=== PATIENT | male | born 1945 | race Caucasian/White ===

== ENCOUNTER 2025-02-15 20:37 | Emergency (ER) | payer MEDICARE, OTHER, SELFPAY ==
--- NOTE | ~2025-02-15 | XR_ITS ---
CHEST RADIOGRAPH CLINICAL HISTORY: preop. HX OF RIGHT LUNG CANCER. . COMPARISON: None available TECHNIQUE: Single portable view of the chest. FINDINGS Severe bullous emphysematous change. Postoperative change within the right hemithorax volume loss and apical thickening. The remainder of the lungs are clear IMPRESSION: Severe bullous emphysematous change with postoperative volume loss and apical thickening of the right hemithorax. Reviewed, dictated and finalized at location A. IMPRESSION: Severe bullous emphysematous change with postoperative volume loss and apical t hickening of the right hemithorax.
--- NOTE | ~2025-02-15 | XR_ITS ---
XR hip RT 2V w AP pelvis Ordering provider: Kehinde Gallagher MD History: . 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 . Comparison: None FINDINGS: BONES: Fracture in the right hip intertrochanteric area. HIP JOINT SPACES: Moderate osteoarthritis bilaterally. SACROILIAC JOINT SPACES/LUMBAR SPINE: The sacroiliac joint spaces are normal. Mild degenerative ledbetter es of the visualized lower lumbar spine. PUBIC SYMPHYSIS: Pubic symphysitis. SOFT TISSUES: Normal. IMPRESSION: Right intertrochanteric area. Bilateral severe hip osteoarthritic changes of the Reviewed, dictated and finalized at location A.
[2025-02-15 20:37] VITALS: BP 117/79; PULSE 108; RESP 20; TEMP 36.6; O2SAT 92
--- NOTE | 2025-02-15 20:51 | ED_ITS ---
HPI - Fall General Chief Complaint: Extremity Injury, Lower Stated Complaint: R hip pain Time Seen by Provider: 02/15/25 20:51 Source: patient Mode of arrival: EMS Limitations: no limitations History of Present Illness HPI Narrative: Patient is a 79-year-old male with a right hip pain after falling in the past week in [place]. He drove all the way back up to home in this area and stopped in a fire station where they called an ambulance to bring him to the ER. MD complaint: fall Onset (ago): week(s) ( One) Fall from: standing Fall witnessed: no Place fall occurred: home Loss of consciousness: none Prolonged down time: no Symptoms prior to fall: none Context: tripped/slipped Location of injury: pelvis ( right hip) Severity: moderate Severity scale (1-10): 6 Quality: sharp Associated symptoms (after fall): denies Related Data Allergies Allergy/AdvReac Type Severity Reaction Status Date / Time doxycycline Allergy Intermediate Hives Verified 02/15/25 21:10 Review of Systems 2 Review of Systems: All systems reviewed & are unremarkable except as noted in HPI and below Constitutional: Constitutional: Reports no additional constitutional complaints Eyes: Eyes: Reports no additional eye complaints ENT: Reports system reviewed and no additional complaints, except as documented Cardiovascular: Cardiovascular: Reports no additional cardiovascular complaints Respiratory: Respiratory: Reports no additional respiratory complaints Gastrointestinal: Gastrointestinal: Reports no additional gastrointestinal complaints Genitourinary: Genitourinary: Reports no additional male genitourinary complaints Musculoskeletal: Musculoskeletal: Reports no additional musculoskeletal complaints Integumentary/Breasts: Skin/Breast: Reports system reviewed and no additional complaints, except as docu Neurologic: Reports system reviewed and no additional complaints, except as documented Psychiatric: Psychiatric: Reports no additional psychiatric complaints Endocrine: Endocrine: Reports no additional endocrine complaints Hematologic/Lymphatic: Hematologic/Lymphatic: Reports no additional hematologic/lymphatic complaints Allergic/Immunologic: Allergic/Immunologic: Reports no additional allergic/immunologic complaints Exam 2 Const: General: healthy appearing Nutritional Appearance: well nourished Orientation/consciousness: patient oriented x3 HENMT: Head: normal to inspection Ears: external ears normal F shawn/Nose/Sinus: Normal external nose present Eyes: Conjunctivae: conjunctivae normal Pupils: Equal, round and reactive pupils present EOM: EOMs intact bilaterally Neck: Neck: normal visual inspection Chest: Chest palpation & inspection: normal inspection of the chest Resp: Effort & Inspection: normal respiratory effort and not labored A uscultation: clear to auscultation bilaterally and no crackles Cardio: Rate: regular rate Rhythm: regular rhythm Heart sounds: no murmurs GI: Inspection: non-distended GI Palp: Yes Soft to palpation and No Tenderness to palpation present (GI) Auscultation: normal bowel sounds : General: Yes bladder normal to palpation Back/Spine/Pelvis: Back: no CVA tenderness Skin: General skin exam: normal color Rashes: no rashes Wounds: no wounds Neuro: General: patient oriented x3, moves all extremities, no meningeal signs, no focal motor deficits and CN's II-XI intact bilaterally Cranial nerves: Yes Nystagmus not present Speech: normal speech Gait exam (Neuro): gait abnormal Extrem: General: abnormal to inspection, no clubbing, cyanosis or edema, no pedal edema and no edema Other: right hip is tender and slightly malrotated and shortened with distal pulses present Psych: Mental Status: mental status grossly normal Affect: normal affect Attitude: cooperative Course Vital Signs Vital signs: Vital Signs Temperature 36.6 C 02/15/25 20:37 Pulse Rate 108 H 02/15/25 20:37 Respiratory Rate 20 02/15/25 20:37 Blood Pressure 117/79 02/15/25 20:37 Pulse Oximetry 92 02/15/25 20:37 Oxygen Delivery Room Air 02/15/25 20:37 Temperature 36.6 C 02/15/25 20:37 Pulse Rate 108 H 02/15/25 20:37 Respiratory Rate 20 02/15/25 20:37 Blood Pressure 117/79 02/15/25 20:37 Pulse Oximetry 92 02/15/25 20:37 Oxygen Delivery Room Air 02/15/25 20:37 MDM - Fall MDM Narrative Medical decision making narrative: patient is a 79-year-old male with a fall in the past week and [place] We will get an x-ray of the right hip and pelvis. Lab Data Attestation: I reviewed the patient's lab results. 02/15/25 22:19 02/15/25 22:19 Labs: Lab Results 02/15/25 02/15/25 Range/Units 21:50 22:19 WBC 12.9 H (4.8-10.8) K/mm3 RBC 4.52 L (4.70-6.10) M/mm3 Hgb 15.5 H (12.4-15.3) g/dL Hct 47.0 H (37.0-46.0) % MCV 104.0 H (78.0-102.0) fL MCH 34.3 H (27.0-31.0) pg MCHC 33.0 (32-36) g/dL RDW 15.0 H (11.6-14.4) % Plt Count 230 (150-420) K/mm3 MPV 10.7 (8.7-11.0) fl Immature Gran % (Auto) 0.5 H (0.0-0.0) % Neut % (Auto) 88.7 H (50.0-70.0) % Lymph % (Auto) 3.4 L (18.0-42.0) % [place] % (Auto) 7.3 (2.0-11.0) % Eos % (Auto) 0.0 L (1.0-6.0) % Baso % (Auto) 0.1 (0.0-1.0) % Lymph # (Auto) 0.44 L (1.10-4.50) K/mm3 [place] # (Auto) 0.94 H (0.10-0.90) K/mm3 Eos # (Auto) 0.00 L (0.02-0.50) K/mm3 Baso # (Auto) 0.01 (0.00-0.10) K/mm3 Abs Immat Gran (auto) 0.07 H (0.00-0.00) K/mm3 Absolute Neuts (auto) 11.42 H (1.70-7.20) K/mm3 Absolute Nucleated RBC 0.00 (0.00-0.00) K/mm3 Nucleated RBC % 0.0 (0-0.0) % PT 11.3 (9.50-12.1) Seconds INR 1.0 APTT 27.6 (23.9-30.70) Sec Sodium 134 L (137-145) mmol/L Potassium 5.0 (3.4-5.0) mmol/L Chloride 103 (98-107) mmol/L Carbon Dioxide 22 (22-30) mmol/L Anion Gap 9 (4-12) mmol/L BUN 21 H (9-20) mg/dL Creatinine 1.50 H (0.7-1.3) mg/dL Estim Creat Clear Calc 34 ml/min Estimated GFR 45 L (59 - ) Glucose 140 H (65-110) mg/dL Calculated Osmolality 283 L (285-295) mOsm/kg Calcium 9.4 (8.4-10.2) mg/dL Total Bilirubin 1.4 H (0.2-1.3) mg/dL AST 36 (17-59) U/L ALT 24 (6-50) U/L Alkaline Phosphatase 133 H (38-126) U/L Total Protein 7.9 (6.3-8.2) g/dL Albumin 4.3 (3.5-5.1) g/dL Urine Color Yellow (Yellow) Urine Appearance Clear (Clear) Urine pH 5.5 (5.0-8.0) Ur Specific [place] 1.025 H (1.010-1.020) Urine Protein 1+ H (Negative) Urine Glucose (UA) Negative (Negative) Urine Ketones Trace H (Negative) Ur Blood (Man) Negative (Negative) Urine Nitrate Negative (Negative) Urine Bilirubin 1+ H (Negative) Urine Urobilinogen 0.2 (0.2-1.0) mg/dL Leukocyte Esterase Rfl Negative (Negative) LUCIAN/UL Urine RBC 0-2 (0-2) /hpf Urine WBC 0-3 (0-3) /hpf Ur Squamous Epith Cells Rare (Few) /hpf Calcium Oxalate Crystal Present H (None) /hpf Urine Bacteria Trace (None) /hpf Imaging Data Attestation: I personally reviewed and interpreted this imaging study as follows: Radiologist's impression: chest x-ray shows IMPRESSION: Severe bullous emphysematous change with postoperative volume loss and apical thickening of the right hemithorax. right hip x-ray and pelvis show a right hip intertrochanteric fracture ECG Data EKG #1: Attestation: I personally reviewed and interpreted this ECG as follows: ECG completion date: 02/15/25 ECG completion time: 23:03 EKG Interpretation: tachycardia, no ectopy, non-specific ST changes, widened QRS, LBBB, normal QT and left axis Discharge Plan Discharge Clinical Impression: Fracture of hip Qualifiers: Encounter type: initial encounter Fracture type: closed Laterality: right Q ualified Code(s): S72.001A - Fracture of unspecified part of neck of right femur, initial encounter for closed fracture Patient Disposition: Acute Care Hospital Condition: Stable Patient Language: Nepali Follow-up/Referrals: Jenn Saini MD [Physician] - Time of Disposition: 23:01
[2025-02-15] MEDS: MORPHINE SULFATE (*CRX) 2 MG/ML INJ IM (21:39)
--- OUTSIDE RECORDS SUMMARY | 2025-02-15 21:51 | XMS_ITS | Clinical Summary ---
Author Organization [facility] Address [address] [address] Phone Care Team Providers Care Supervising Chef Name Role Phone Silvano Wood MD Primary Care Provider [phone] Allergies Active Allergy Reactions Criticality Noted Date Comments Doxycycline Hives,Rash Medium 06/04/2023 Medications nitroglycerin (NITROSTAT) 0.3 MG SL tablet Active sacubitril-valsa rtan (Entresto) 49-51 MG per tablet Take 1 tablet twice a day by oral route for 90 days. 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 09/23/2020 Overview (01/10/2024): gastroenterology/ [id number] Chronic obstructive pulmonary disease 07/07/2020 Overview (01/13/2024): eliseo Encounters Date Type Department Care Team Description 01/09/2025 Telephone [facility] [address] [place] [address] Livia Ardon MA from Last 3 Months Immunizations Immunization Administration Dates Next Due Influenza TIV (IM) 08/24/2024,07/19/2023 Moderna Sars-cov-2 Vaccination 08/31/2022,2020,12/15/2020,11/14/2020 Pneumococcal Conjugate 02/17/2024(Deferred: Elizabeth ent decision) Pneumococcal Conjugate 13-Valent 02/17/2024(Defe rred: Patient decision) Family History Medical History Relation Comments Heart disease Father Relation Status Comments Father Social History Tobacco Use Types Packs/Day Years Used Date Smoking Tobacco: Former Cigarettes Passive Smoke Exposure: Past Smokeless Tobacco: Never Tobacco Cessation:Counseling Given: Yes Alcohol Use Standard Drinks/Week Comments Never 0 (1 standard drink = 0.6 oz pur e alcohol) Sex and Gender Information Value Date Recorded Sex Assigned at Not on file Legal Sex Male 10:05 AM MDT Gender Identity Not on file Sexual Orientation Not on file Last Filed Vital Signs Vital Sign Reading Time Taken Comments Blood Pressure 118/60 09/14/2024 2:34 PM EST Pulse 64 09/14/2024 2:34 PM EST Temperature - - Respiratory Rate - - Oxygen Saturation 94% 09/14/2024 2:34 PM EST Inhaled Oxygen Concentration - - Weight 71.2 kg (157 lb) 09/14/2024 2:34 PM EST Height 182.9 cm (6') 09/14/2024 2:34 PM EST Body Mass Index 21.29 09/14/2024 2:34 PM EST Plan of Treatment Health Maintenance Due Date Last Done Comments Pneumococcal PPSV23/PCV13 65 + Years / High and Highest Risk (1 of 5 - PCV) 1964 COVID-19 Vaccine ( - 2023-2 5 season) 2024 08/31/2022, 08/27/2021, 12/15/2020, Additional history exists Influenza Vaccine Completed 08/24/2024, 07/19/2023 Insurance PM INTERFACED INSURANCE PM INTERFACED INSURANCE PM INTERFACED INSURANCE Care Teams Supervising Chef Relationship Specialty Start Date End Date Silvano Wood MD [address] [place] [id number] PCP - General Family Medicine 02/17/24
--- OUTSIDE RECORDS SUMMARY | 2025-02-15 21:51 | XMS_ITS | Continuity of Care Document ---
Author Organization [facility] Address [address] [place] [address] [address] [place] [address] Phone Care Team Providers Care Housing Relocation Name Role Phone Davide Schwab MD Unavailable Unavailable Procedures Procedure Date HOSPITAL ECHO Advance Directives Directive Yes / No Effective Date File Name No Information Encounters Encounter Description Practice Location Reason(s) For Visit Diagnoses Date Provider Providers Copied on Encounter [facility], [address] [place] [address], [id number], tel:[phone] Devorah FONTANEZ No Information 8 Zaheer Augustine. [address] [place] [address], [id number] , [place]. tel:[phone] [facility], [address] [place] [address], [id number], [place] tel:[phone] [address] [facility] IP No Information 8 Rogelio Trammell. [address] [place] [address], [facility] [address] [place], [place], [id number] , [place]. tel:[phone] Referring Provider: Susan Avila, [address] [place] [address] [address], [address]. tel:[phone] Family History Family Member Type Diagnosis Age At Onset No Information Payers Payer name Insurance type Covered constitution party ID Authoriza tion(s) No Information Social History Type Description Quantity Date Captured Comments Sex Male Smoking Status No Information Chief Complaint And Reason For Visit No Information Reason For Referral Reason For Referral No Information History Of Present Illness Encounter Date Complaint History Of Prese nt Illness No Information Functional Status Date Functional Assessmen t No Information Instructions Date Instruction Additional Infor mation No Information Assessments Type Assessment Date No Information Patient Care Teams Name Effective Dates (start - stop) Status Members No Information
--- OUTSIDE RECORDS SUMMARY | 2025-02-15 21:51 | XMS_ITS | Data Portability ---
Author Organization [place] - [facility], [facility] Address [address] [facility] [place] [place] [address] Assessment Encounter Date Assessment Date Assessment LastModified by Organization Details LastModified Time 02/25/2021 02/25/2021 Patient presents with his left hand swollen, red streaking to his left antecubital area and a small open area with serous sanguineus drainage. His right hand has a 3cm X 2 cm bruised area and swelling noted to the thumb. The patient reports he awoke like this. Noticed mild itching on the right hand and awoke to see the swelling and redness. He denies fever. Will culture the left thumb, start patient on Doxycycline, IM shot of Rocephin and instructed to use Muporicin three times daily to both areas right and left. Patient was advised if he begins running a fever, redness or swelling becomes worse after starting the antibiotic to see medical attention. Pictures were taken and placed on chart with patients consent for future comparison. Patient verbalized understanding and is agreeable. [email or web address] Not available 02/25/2021 09:24:45 Plan of Treatment Reminders Order Date Submit Date Provider Last Modified By Organization Details Last Modified Time Details Appointments None recorded. Lab culture, wound - left hand/thumb 2020 021 ANDIE Not available 07:58:[address] referral - Please call patient to schedule appointment . Thank you. 2019 020 [email or web address] [facility], [address], [place], [address], 0 15:19:41 cardiologis t referral 2018 019 [facility], [address], [place], [address], 9 07:23:22 Procedures None recorded. Surgeries None recorded. Imaging LDCT, chest, for lung cancer screening - please call pt with appt time and date 2019 020 [facility], [address], [place], [address], 0 17:26:10 US, echocardiog belén, transthorac ic, complete, w/ color flow 2018 019 [email or web address] 4 [facility], [address], [place], [address], 9 10:24:59 Medication Orders mupirocin 2 % topical ointment 2020 021 [facility], [address], [place], [address], 1 09:20:43 ceftriaxone 1 gram solution for injection 2020 021 india spears Not available 1 11:15:18 doxycycline hyclate 100 mg tablet 2020 021 [facility], [address], [place], [address], 1 09:20:43 Medrol (Juan) 4 mg tablets in a dose pack 2019 020 [email or web address] [id number], [address], [place], [address], 0 13:42:06 mupirocin 2 % topical ointment 2019 020 [email or web address] [facility], [address], [place], [address], 0 10:58:23 Bactrim DS 800 mg-160 mg tablet 2019 020 [email or web address] [facility], [address], [place], [address], 0 13:42:27 Patient TargetsNo targets recorded. Patient Instructions Encounter Date Encounter Id Patient Instructions Last Modified By Organization Details Last Modified Time 08/21/2019 [id number] Thank you for choosing My [facility]. Return to the clinic or nearest emergency department for new/worsening symptoms immediately. Return for persistent symptoms. If any referral were made during your appointment today and you have not heard back about testing or referrals within 7-10 days then call our office number [phone]. REturn if symptoms persist for longer than 7-10 days. Not available 08/21/2019 15:21:38 11/14/2019 [id number] Thank you for choosing [facility]. Return to the clinic or nearest emergency department for new/worsening symptoms immediately. Return for persistent symptoms. If any referral were made during your appointment today and you have not heard back about testing or referrals within 7-10 days then call our office number [phone]. REturn if symptoms persist for longer than 7-10 days. Take the antibiotic as directed. Take the medrol dose juan as directed with food. Don't take the medrol dose juan while taking other NSAIds such as but not limited to ibuprofen, motrin, advil, aleve, naproxen, meloxicam, celebrex, or any other NSAID. Stop the medrol dose juan and get seen immediately for black tarry stools, abdominal pain, nausea, blood in the stools, vomiting, mental status changes or changes in behavior new/worsening symptoms. USe the antibiotic ointment. Not available 11/14/2019 12:10:36 05/09/2020 [id number] complete PFT w/ post bronchodilator spirometry* ANDIE Not available 07/07/2020 11:06:22 skin lesions: ca re instructions [email or web address] Not available 05/09/2020 19:14:36 rtc 6 month ex smoker ldct lung pft derm refer cont meds [place] Not available 05/09/2020 19:15:20 obatterton Not available 05/09 19:14:44 02/25/2021 [id number] cellulitis: care instructions [email or web address] Not available 02/25/2021 09:20:32 Thank you for choosing My [facility] for your health care. Take antibiotics as directed Wash with soap and water two times a day Do not use peroxide to the areas If areas continue to spread after beginning the antibiotics seek re evaluation or if fever begins F/U with PCP if syptoms worsen or persist. 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 Thank you. Referring Physician: Dexter Ricardo [facility], Encounter Date: 05/09/2020 Results Created Date Observation Date Name Description Value Unit Range Abnormal Flag Note LastModifiedBy Organization Detail LastModifiedTime 02/26/20 21 02/25/2021 gram stain age 75 years Lab Perfo rmed By: LUBA E_CGH , , , , Not Available Diane Cook DIRECTOR OF BUSINESS SERVICES [address] [place], [address], 02/26/2021 03:33:01 02/26/20 21 02/25/2021 cultu re, wound culture wound Staphy lococc us epider midis _CULT URE_W OUND_ Not Available Diane Cook DIRECT[employer] OF BUSINESS SERVICES [address] [place] [place], [address], 03/01/2021 07:58:01 02/26/20 21 02/25/2021 cultu re, wound wound site: HAND LEFT COMME NT __ This organ ism is usual ly a conta minat e but may be consi dered a Patho gen if clini eliezer sympt oms accom pany the prese nce of this organ ism. A sensi tivit y repor t is inclu ded for your conve nienc e shoul d you consi lynn this is a Patho gen. If not consi dered a Patho gen pleas e disre regis the sensi tivit y repor t. Not Available Diane Cook DIRECT[employer] OF [employer] SERVICES [address], [place], [address], 03/01/2021 07:58:01 02/26/20 21 02/25/2021 cultu re, wound sensitivity ? YES Not Available Jaswant Cook DIRECTOR OF BUSINESS SERVICES [address], [place], [address], 03/01/2021 07:58:01 02/26/20 21 02/25/2021 cultu re, wound notify ic.? YES Not Available Jaswant Cook [employer] SERVICES [address], [place], [address], 03/01/2021 07:58:01 02/26/20 21 02/25/2021 cultu re, wound notify pharm? YES Not Available Jaswant Cook DIRECTOR OF BUSINESS SERVICES [address], [place], [address], 03/01/2021 07:58:01 02/26/20 21 02/25/2021 cultu re, wound age 75 years Lab Perfo rmed By: LUBA E_CGH , [address], [place], [place], Not Available Diane Cook DIRECTOR OF BUSINESS SERVICES [address], [place], [address], 03/01/2021 07:58:01 02/26/20 21 02/25/2021 cultu re, wound cefoxitin screen Neg unknown Not Available Jaswant Cook DIRECT[employer] OF BUSINESS SERVICES [address], [place], [address], 03/01/2021 07:58:01 02/26/20 21 02/25/2021 cultu re, wound oxacillin della <=0.25 ug/mL susceptib le Not Available Diane Cook NP [address], [place], [address], 03/01/2021 07:58:01 02/26/20 21 02/25/2021 cultu re, wound gentamicin <=0.5 ug/mL susceptib le Not Available Diane Cook DIRECT[employer] SERVICES [address] [place], [address], 03/01/2021 07:58:01 02/26/20 21 02/25/2021 cultu re, wound levofloxacin <=0.12 ug/mL susceptib le Not Available Diane Cook DIRECT[employer] OF [employer] SERVICES [address], [place], [address], 03/01/2021 07:58:01 02/26/20 21 02/25/2021 cultu re, wound erythromycin <=0.25 ug/mL susceptib le Not Available Diane Cook DIRECT[employer] OF BUSINESS SERVICES [address], [place], [address], 03/01/2021 07:58:01 02/26/20 21 02/25/2021 cultu re, wound clindamycin =0.25 ug/mL susceptib le Not Available Diane Cook DIRECTOR OF BUSINESS SERVICES [address], [place], [address], 03/01/2021 07:58:01 02/26/20 21 02/25/2021 cultu re, wound daptomycin =0.25 ug/mL susceptib le Not Available Diane Cook DIRECTOR OF BUSINESS SERVICES [address], [place], [address], 03/01/2021 07:58:01 02/26/20 21 02/25/2021 cultu re, wound vancomycin =1 ug/mL susceptib le Not Available Diane Cook DIRECT[employer] OF BUSINESS SERVICES [address], [place], [address], 03/01/2021 07:58:01 02/26/20 21 02/25/2021 cultu re, wound doxycycline <=0.5 ug/mL susceptib le Not Available Diane Cook DIRECTOR OF BUSINESS SERVICES [address], [place], [address], 03/01/2021 07:58:01 02/26/20 21 02/25/2021 cultu re, wound tetracycline <=1 ug/mL susceptib le Not Available Diane Cook DIRECTOR OF BUSINESS SERVICES [address] [place], [address], 03/01/2021 07:58:01 02/26/20 21 02/25/2021 cultu re, wound rifampicin <=0.5 ug/mL susceptib le Not Available Diane Cook DIRECTOR OF BUSINESS SERVICES [address] [place] [facility] [place], [address], 03/01/2021 07:58:01 02/26/20 21 02/25/2021 cultu re, wound trimethoprim /sulfamethox a <=10 ug/mL susceptib le Lab Perfo rmed By: LUBA E_NERI , [address], [place], [place], Not Available Diane Cook DIRECTOR OF BUSINESS SERVICES [address] [place] [facility] [place], [address], 03/01/2021 07:58:01 05/24/20 20 05/24/2020 LDCT, chest , for lung don garcias Docs4[facility] o[facility] Report : Radiol ogy ([facility]) Radiol ogy Consul tation Report Exam: CT LUNG SCREEN ING Pt Name: BEHZAD GREENE : 1944 Sex: M Exam Date: 2019 Exam Time: 17:19: 07 69 Access ion: [id number] Pt Class: O Pt Locati on: [facility] Reason for Exam: Ordere d by: DEXTER BOOKER CT LUNG SCREEN ING Histor y: 30+ pack year smokin g histor y. Compar abbey: None availa ble. Techni que: Low dose chest CT was perfor med withou t contra st enhanc ement. Axial images were obtain ed from the thorac ic outlet to the upper abdome n. Jeffery l reform ats were perfor med. Dose reduct ion/it erativ e recons tructi on techni que was utiliz ed. Findin gs: Heart and Medias tinal Vessel s:Norm al heart size. Normal calibe r medias tinal vascul ar struct ures. Lymph Nodes: No medias tinal or hilar adenop athy. Esopha logan: Normal Calibe r. Large Airway s: Widely Patent . Lungs Genera l: Lungs have severe emphys cyndi most promin ent in upper lungs. Coarse linear opacit ies consis tent with scarri ng are seen in upper lungs. Lobar Evalua tion: RUL: No suspic ious nodule , RML: No suspic ious nodule , RLL: No suspic ious nodule , PJ: No suspic ious nodule , LLL: No suspic ious nodule , Pleura l Space: No pleura l mass or effusi on. Bones: Intact . Additi onal Findin gs: None. IMPRES SEDA: 1. Negati ve screen ing chest CT for suspic ious lung nodule . Recomm end routin e LDCT screen ing in one year. 2. There is signif icant centri lobula r emphys cyndi partic ularly in upper lungs where there is also scarri ng. Lung Rads Catego ry 1 Electr onical ly Signed by: Missael Borrero ed on: 020 5:[address] [facility], [place], [address], 05/26/2020 08:38:25 07/07/20 20 06/24/2020 compl ete PFT w/ post [facility] hodil ator luda metry * No observ ation record ed. [facility] [address], [place], [address], 07/10/2020 16:31:05 Result Notes None recorded. Problems Name Problem SNOMED Code Status Onset Date Resolution Date Notes Provider Name and Address Organization Details Recorded Time Nonischem ic congestiv e cardiomyo jean-pierre 133074258567 Active 2019 rink/ [facility] cardiolog y Dexter Ricardo MD [address], [place], [address], [facility] 0 10:13:04 Left bundle branch block 96767384 Active 2019 rink/[facility] cardiolog y Dexter Ricardo MD [address], [place], [address], [facility] 0 10:14:02 Pulmonary emphysema 25236446 Active 2019 Dexter Ricardo MD [address], [place], [address], [facility] 0 20:52:38 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 Procedures Surgical History Date Name Laterality Status Provider Name and Address Organization Details Recorded Time 8 Colonoscopy completed [facility] 08/21/2019 15:21:01 Imaging Results Imaging Date Name Status LastModified by Organization Details LastModified Time 05/24/2020 LDCT, chest, for lung cancer screening completed [address], [place], [address], 05/26/2020 08:38:25 06/24/2020 complete PFT w/ post bronchodilator spirometry* completed [facility] [address], [place], [address], 07/10/2020 16:31:05 Procedure Notes None recorded. Medical Equipment None Reported. Allergies Allergen ID Allergen Name Allergen Category Reaction Reaction Severity Criticality Documentation Date Start Date Code Code System Note Provider Name and Address Organization Details Recorded Time 90129 doxycycli ne Not available hives Not available Not available 02/27/2021 3640 RxNorm Cira Arita meenu, [facility] 1 09:01:40 Medications Name Sig Start Date Stop Date Status Note LastModified by Organization Details LastModified Time carvedilo l 12.5 mg tablet 05/09 completed Not Available Not Available Not Available ipratropi um 0.5 mg-albute rol 3 mg (2.5 mg base)/3 mL nebulizat ion soln 08/21 completed Not Available Not Available Not Available nitroglyc jayshree 0.3 mg sublingua l tablet active Not Available Not Available Not Available albuterol sulfate 1.25 mg/3 mL solution for nebulizat ion 08/21 completed Not Available Not Available Not Available Medrol (Juan) 4 mg tablets in a dose pack Take 1 dose pk by oral route. 05/07 completed Not Available Not Available Not Available sulfameth oxazole 800 mg-trimet hoprim 160 mg tablet Take 1 tablet every 12 hours by oral route for 10 days. 05/07 completed Not Available Not Available Not Available spironola ctone 25 mg tablet Take 1 tablet every day by oral route for 90 days. active Not Available Not Available No t Available carvedilo l 3.125 mg tablet 2 pills twice daily active Not Available Not Available No t Available ceftriaxo ne 1 gram solution for injection Take 1 g by injectio n route. 2020 active Ceftriax one 1 gram IM Now one time only Not Available Not Available Not Available benzonata te 100 mg capsule 08/21 completed Not Available Not Available Not Available cephalexi n 500 mg capsule Take 1 capsule every 8 hours by oral route for 7 days. 2020 active has d/c doxycyli ne to to allergic reaction Not Available Not Available Not Available Advair Diskus 250 mcg-50 mcg/dose powder for inhalatio n Inhale 1 puff twice a day by inhalati on route for 90 days. 02/25 completed Not Available Not Available Not Available Baby Aspirin 81 mg chewable tablet Chew 1 tablet every day by oral route. active Not Available Not Available No t Available mupirocin 2 % topical ointment APPLY A SMALL AMOUNT TO THE AFFECTED AREA BY TOPICAL ROUTE 3 TIMES PER DAY 2020 active Not Available Not Available Not Avai lable lisinopri l 2.5 mg tablet 11/14 completed Not Available Not Available Not Available doxycycli ne hyclate 100 mg tablet Take 1 tablet twice a day by oral route for 7 days. 2020 active Not Available Not Available Not Avai lable levofloxa keely 250 mg/10 mL oral solution 08/21 completed Not Available Not Available Not Available spironola ctone 1 pill daily 05/07 completed Not Available Not Available Not Available Dulera 100 mcg-5 mcg/actua tion HFA aerosol inhaler 08/21 completed Not Available Not Available Not Available Entresto 49 mg-51 mg tablet Take 1 tablet twice a day by oral route for 90 days. active Not Available Not Available No t Available Entresto 24 mg-26 mg tablet Take 1 tablet twice a day by oral route for 90 days. 05/09 completed Not Available Not Available Not Available Entresto 1 pill twice daily 05/07 completed Not Available Not Available Not Available Vitals Date Recorded Body height Body mass index (BMI) Body weight Oxygen saturation Oxygen saturation in Arterial blood by Pulse oximetry Respiratory rate Heart rate Body temperature Systolic blood pressure Diastolic blood pressure Provider Name and Address Organization Details Last Updated DateTime 1 185.42 cm 24.6 kg/m2 78321.6 2 g 96 % 96 % 20 /min 76 /min 97.4 [degF] 140 mm[Hg] 72 mm[Hg] Raina Redd [facility] 1 09:08:04 Date Recorded Body weight Body mass index (BMI) Body height Body temperature Oxygen saturation Oxygen saturation in Arterial blood by Pulse oximetry Respiratory rate Heart rate Systolic blood pressure Diastolic blood pressure Provider Name and Address Organization Details Last Updated DateTime 9 77054.3 6 g 22.1 kg/m2 185.42 cm 96.8 [degF] 96 % 96 % 16 /min 86 /min 128 mm[Hg] 76 mm[Hg] Juliet Orlando [facility] 9 15:23:15 Date Recorded Body height Provider Name an d Address Organization Details Last Updated DateTime 09/17/2019 185.42 cm Juliet Orlando [facility] 09/17/2019 08:28:47 Date Recorded Body height Body mass index (BMI) Body weight Body temperature Oxygen saturation Oxygen saturation in Arterial blood by Pulse oximetry Heart rate Respiratory rate Systolic blood pressure Diastolic blood pressure Provider Name and Address Organization Details Last Updated DateTime 0 185.42 cm 23.1 kg/m2 95411.3 8 g 99.6 [degF] 96 % 96 % 71 /min 18 /min 122 mm[Hg] 74 mm[Hg] Juliet Orlando [facility] 0 11:59:56 Date Recorded Body height Body mass index (BMI) Body weight Oxygen saturation Oxygen saturation in Arterial blood by Pulse oximetry Heart rate Body temperature Systolic blood pressure Diastolic blood pressure Provider Name and Address Organization Details Last Updated DateTime 0 185.42 cm 23.4 kg/m2 06972.6 5 g 93 % 93 % 91 /min 97.2 [degF] 130 mm[Hg] 62 mm[Hg] Susan Rueda [facility] 0 10:57:08 Social History Question Answer Notes LastModified by Organizat ion Details LastModified Time Tobacco Smoking Status Former Smoker Pt quit [facility]2019 [facility] 08/21/2019 15:20:32 Are You Currently Employed? No [email or web address] Information not available 11/14/2019 Do You Or Have You Ever Used E-cigarettes Or Vape? Never Used Electronic Cigarettes [email or web address] Information not available 08/21/2019 Hard Of Hearing Or Deaf In One Or Both Ears? No [email or web address] Information not available 11/14/2019 Legally Blind In One Or Both Eyes? No [email or web address] Information not available 11/14/2019 Live Alone Or With Others? With Others [email or web address] Information not available 11/14/2019 Need Dog Beautician Service? No [email or web address] Information not available 11/14/2019 What Was The Date Of Your Most Recent Tobacco Screening? 05/09/2020 Information not available 05/09/2020 Do You Or Have You Ever Used Smokeless Tobacco? Never Used Smokeless Tobacco [email or web address] Information not available 08/21/2019 How Many Years Have You Smoked Tobacco? 30 Information not available 05/09/2020 Sex: Unknown Functional Status Question Answer Note LastModified by Organization D etails LastModified Time Are you able to care for yourself? Yes [email or web address] Information n ot available 11/14/2019 Mental Status None recorded. Family History Relationship Description Onset Age of this Age Resolved Age Notes LastModified by Organization Details LastModified Time Father No current problems or disability [email or web address] Not available 08/10 15:20:03 Mother No current problems or disability [email or web address] Not available 08/10 15:20:03 Medical History No medical history recorded. Past Encounters Encounter ID Performer Location Encounter Start Date Encounter Closed Date Diagnosis/Indication Diagnosis SNOMED-CT Code Diagnosis ICD10 Code Diagnosis Note [id number] Niharika Ochoa NP [facility] [address] [place] [address] 08/21/2019 15:13:18 08/21/2019 15:46:31 Congestive heart failure 46121361 I50.9 [id number] Niharika Ochoa NP [facility] [address] [place] [address] 09/17/2019 07:54:55 09/17/2019 08:30:40 [id number] Niharika Ochoa NP [facility] [address] [place] [address] 11/14/2019 11:47:37 11/14/2019 12:25:24 Cellulitis 713098107 L03.90 Allergic r eaction to insect bite 206785288 T78.40XA [id number] Dexter Ricardo MD [facility] [address] [place] [address] 05/09/2020 10:50:46 05/09/2020 11:23:38 Ex-smoker 7596012 Z87.891 Skin lesion 04071654 L98 .9 [id number] [facility] [address] [place] [address] 02/25/2021 09:04:53 02/25/2021 09:36:00 Cellulitis 235861700 L03.90 Health Concerns Section Related Observation LastModified by Organization Detai ls LastModified Time None Recorded Concern Status LastModified by Organization Details LastModified Time None Recorded Advance Directives Directive None Recorded Payers Encounter Date Sequence Insurance Name Policy Number Policy Denny Covered Member ID Denny Member ID Guarantor Name 08/21/2019 1 MEDICARE B-IN: WPS Nestor Linder [id number] Nestor Hectoratto 08/21/2019 2 WPS - FOR LIFE (SECONDARY TO MEDICARE) Nestor Hectorelioto [id number] Nestor Hectoratto 09/17/2019 1 MEDICARE B-IN: WPS Nestor Jenseno [id number] Nestor Hectoratto 09/17/2019 2 WPS - FOR LIFE (SECONDARY TO MEDICARE) Nestor Linder [id number] Nestor Tawnyatto 11/14/2019 1 MEDICARE B-IN: WPS Nestor Linder [id number] Nestor Tawnyatto 11/14/2019 2 WPS - FOR LIFE (SECONDARY TO MEDICARE) Nestor Tawnycarol [id number] Nestor Tawnyatto 05/09/2020 1 MEDICARE B-[place]: WPS Nestor Linder [id number] Nestor Hectoratto 05/09/2020 2 WPS - FOR LIFE (SECONDARY TO MEDICARE) Nestor Hectorcarol [id number] Nestor Hectorcarol 02/25/2021 1 MEDICARE A-IN: WPS - J8 [facility] Nestor Linder [id number] Nestor Hectoratto 02/25/2021 2 WPS - FOR LIFE (SECONDARY TO MEDICARE) Nestor Linder [id number] Nestor Tawnycarol Notes Date Note Type Note Provider Name and Address Organization Details Recorded Time 9 text/html The patient states that last year he had pneumonia. The patient has a senior web designer in [facility] named Emmett Vaughn. The patient denies denies any cardiac stents or bypass surgery. THe patient had a heart cath in which showed no blockage. The patient was started on carvedilol and lisinopril. The patient was a previous smoker until July of last year and he quit smoking when he found out that he had pneumonia. The patient had his flu shot this year. No chest pain. No dyspnea. No dizziness. No syncope. No near syncope. No leg edema. NO weight gain. The patient states that his heart cath was negative last year, however his heart muscle was weakened and his senior web designer in [place] would like to have a repeat echo performed to assess the strength of his heart. THe patient states that she does not want any labs performed. The patient had a colonoscopy last year. [facility] 08/21/2019 15:39:55 0 text/html Patient believes he has been bitten by spiders on his arm, back, and face sometime Tuesday evening. Patient complains of itching but denies pain. No fever. NO chills. No nausea. NO vomiting. Non diabetic. The patient states that he has right eye swelling, right forearm swelling and redness and four spots on his back. The patient c/o pruritis. No throat or tongue edema. No dyspnea. No chest pain. THe patient states that they took out the ceiling in his apartment complex and now he has bite trejo in which he believes are spiders. No history of stomach ulcers. No GI bleeds. No history of atrial fib. No melena. [facility] 11/14/2019 12:12:25 0 text/html Patient is here to establish care, so someone can refill medications. Patient is scheduled for a COBY with Dr. Eaton. ex smoker. not clear why the advair is being used other than smoking hx . Dexter Ricardo MD [address], [place], [id number], [facility] 05/09/2020 19:15:39 1 text/html Patient presents with his left hand swollen, red streaking to his leftantecubitalarea and a small open area with serous sanguineus drainage. His right hand has a 3cm X 2 cm bruised area and swelling noted to the thumb. The patient reports he awoke like this. Noticed mild itching on the right hand and awoke to see the swelling and redness. He denies fever. He denies using anything on the areas for symptom relief. Reena Denny [address], [place], [id number], [place] [facility] 02/25/2021 09:25:29
--- NOTE | 2025-02-15 21:58 | ECG_ITS ---
Test Date: 2025-02-15 22:11:36 Measurements Intervals [place] Rate: 114 P: 63 SD: 248 QRS: -30 QRSD: 168 T: 124 QT: 401 QTc: 554 Interpretive Statements SINUS TACHYCARDIA WITH FIRST DEGREE AV BLOCK RIGHT ATRIAL ENLARGEMENT [0.3mV P-WAVE] LEFT ATRIAL ENLARGEMENT [-0.15mV P-WAVE IN V1/V2] LEFT BUNDLE BRANCH BLOCK [120+ ms QRS DURATION, 80+ ms Q/S IN V1/V2, 85+ ms R IN I/aVL/V5/V6] No previous ECG available for comparison Electronically Signed On 02-16-2025 15:40:24 CDT by Arianna Zhao M.D.
[2025-02-15 22:01] VITALS: BP 124/111
[2025-02-15 22:15] VITALS: O2SAT 92
[2025-02-15 22:33] LABS: Basophils Absolute Auto 0.01 K/mm3 (0.00-0.10); Basophils Percent Auto 0.1 % (0.0-1.0); Hemoglobin 15.5 g/dL (12.4-15.3); Immature Granulocyte Absolute 0.07 K/mm3 (0.00-0.00); Immature Granulocyte Percent A 0.5 % (0.0-0.0); Lymphocytes Absolute Auto 0.44 K/mm3 (1.10-4.50); Lymphocytes Percent Auto 3.4 % (18.0-42.0); Mean Corpuscular Hemoglobin 34.3 pg (27.0-31.0); Mean Platelet Volume 10.7 fl (8.7-11.0); Monocytes Absolute Auto 0.94 K/mm3 (0.10-0.90); Monocytes Percent Auto 7.3 % (2.0-11.0); Neutrophils Absolute Auto 11.42 K/mm3 (1.70-7.20); Neutrophils Percent Auto 88.7 % (50.0-70.0); Platelet Count Result 230 K/mm3 (150-420); Red Blood Count 4.52 M/mm3 (4.70-6.10); White Blood Count 12.9 K/mm3 (4.8-10.8)
[2025-02-15 22:38] LABS: Add Urine Microscopic? YES; Appearance Urine Clear (Clear); Bilirubin Urine 1+ (Negative); Blood Urine Negative (Negative); Color Urine Yellow (Yellow); Glucose Urine UA Negative (Negative); Ketones Urine Trace (Negative); Leukocyte Esterase Ur Negative LEU/UL (Negative); Nitrate Urine Negative (Negative); Protein Urine 1+ (Negative); Specific Grav Ur 1.025 (1.010-1.020); Urobilinogen Urine 0.2 mg/dL (0.2-1.0); pH Urine 5.5 (5.0-8.0)
[2025-02-15 22:44] LABS: Calcium Oxalate Crystals Urine Present /hpf; RBC Urine 0-2 /hpf (0-2); Squamous Epithelial Cell Urine Rare /hpf (Few); WBC Urine 0-3 /hpf (0-3)
[2025-02-15 22:45] LABS: Bacteria Urine Trace /hpf
[2025-02-15 22:46] LABS: Alanine Aminotransferase 24 U/L (6-50); Albumin Level 4.3 g/dL (3.5-5.1); Alkaline Phosphatase 133 U/L (38-126); Anion Gap 9 mmol/L (4-12); Aspartate Amino Transferase 36 U/L (17-59); Bilirubin,Total 1.4 mg/dL (0.2-1.3); Blood Urea Nitrogen 21 mg/dL (9-20); Calcium 9.4 mg/dL (8.4-10.2); Carbon Dioxide 22 mmol/L (22-30); Chloride 103 mmol/L (98-107); Estimated CRCL calculation 34 ml/min; Estimated Glomerular Filt Rate 45; Glucose 140 mg/dL (65-110); Osmolality Calculated 283 mOsm/kg (285-295); Sodium 134 mmol/L (137-145); Total Protein 7.9 g/dL (6.3-8.2)
[2025-02-15 22:48] LABS: Partial Thromboplastin Time 27.6 Sec (23.9-30.70); Prothrombin Time 11.3 Seconds (9.50-12.1)
[2025-02-15] MEDS: SODIUM CHLORIDE 0.9% IV 1,000 ML 125 ML IV CONT (22:57)
[2025-02-15] MEDS: HYDROmorphone HCL INJ (*CRX) 2 MG/ML VIAL 0.5 MG IV PUSH (23:28)
[2025-02-15 23:39] VITALS: BP 121/75; O2SAT 91
[2025-02-15 23:46] VITALS: O2SAT 94
[2025-02-16 00:01] VITALS: BP 118/76; O2SAT 94
[2025-02-16 00:31] VITALS: BP 124/88; O2SAT 96
[2025-02-16 01:02] VITALS: BP 132/76; O2SAT 96
[2025-02-16 01:40] VITALS: O2SAT 96
== END 2025-02-16 01:43 | disposition short-term general hospital (02) ==
PROVIDERS: Emergency Provider Emergency Medicine; PCP Family Medicine
DX: S72.001A Fracture of unspecified part of neck of right femur, initial encounter for closed fracture (principal); W18.30XA Fall on same level, unspecified, initial encounter
CPT/HCPCS: 36415; 71045; 73502; 80053; 81001; 85025; 85610; 85730; 93005; 96361; 96372; 96374; 99285; J1171; J2270; J7030

== ENCOUNTER 2025-02-16 02:17 | Inpatient (IN) | payer MEDICARE, OTHER, SELFPAY ==
[2025-02-16] VITALS (20 sets, daily range): BP systolic 120–147; BP diastolic 55–75; PULSE 77–100; RESP 12–20; TEMP 36.1–36.9; O2SAT 93–100; BMI 21.0
--- NOTE | ~2025-02-16 | XR_ITS ---
EXAMINATION: XR surgery orthopedic DATE: 02/16/2025 08:59 INDICATION: Intertrochanteric fracture the proximal right femur TECHNIQUE: 3 fluoroscopic images of the right hip and proximal femur were obtained during procedure p erformed by Dr Landin. Radiologist was not present for the imaging or procedure. The amount of fluor oscopy time used during this procedure was 0.3 minutes. Total DAP was 0.331 Gycm^2. COMPARISON: None. FINDINGS: Interval reduction and internal fixation of noted intertrochanteric fracture the proximal right femur which is now in near-anatomic alignment. The fracture is fixed with an antegrade intramedullary gayla with femoral neck dynamic compression screw and distal interlocking screw. Moderate to severe osteoar thritis at the right hip. No new fractures identified. IMPRESSION: 1. Fluoroscopy utilized during internal fixation of an intertrochanteric fracture the proximal right femur which is in near-anatomic alignment. Reviewed, dictated and finalized at location A. IMPRESSION: 1. Fluoroscopy utilized during internal fixation of an intertrochanteric fractu re the proximal right femur which is in near-anatomic alignment.
--- OUTSIDE RECORDS SUMMARY | 2025-02-16 02:35 | XMS_ITS | Continuity of Care Document ---
Author Organization [facility] Address [address] [place] [address] [address] [place] [address] Phone Care Team Providers Care Java Security Architect Name Role Phone Davide Schwab MD Unavailable Unavailable Procedures Procedure Date HOSPITAL ECHO Advance Directives Directive Yes / No Effective Date File Name No Information Encounters Encounter Description Practice Location Reason(s) For Visit Diagnoses Date Provider Providers Copied on Encounter [facility], [address] [place] [address], [id number], tel:[phone] Devorah FONTANEZ No Information 8 Zaheer Augustine. [address] [place] [address], [id number] , [place]. tel:[phone] [facility], [address] [place] [address], [id number], [place] tel:[phone] N [facility] IP No Information 8 Rogelio Trammell. [address] [place] [address], [facility] [address], [place], [id number] , [place]. tel:[phone] Referring Provider: Susan Avila, [address] [place] [address] [address], [place], [address]. tel:[phone] Family History Family Member Type Diagnosis Age At Onset No Information Payers Payer name Insurance type Covered green party ID Authoriza tion(s) No Information Social [...]
--- OUTSIDE RECORDS SUMMARY | 2025-02-16 02:35 | XMS_ITS | Clinical Summary ---
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
--- NOTE | 2025-02-16 02:49 | ADMGEN ---
This patient, Nestor Linder, was admitted to 3 [facility] Surg Room 321-01 at 0230. Patient/family oriented to hospital policies and general routines including ID bracelet, bed and alarms, visiting hours, pain management, procedures, bathroom and other care routines, personal items, smoking policy, room service/diet, and visiting hours. Information on how to activate the Rapid Response Team has been discussed. Patient/Family are encouraged to report perceived risks to care and to ask questions if they do not understand what they are told or what they should do.
[2025-02-16] MEDS: MORPHINE SULFATE (*CRX) 2 MG/ML INJ IV PUSH (03:31)
--- NOTE | 2025-02-16 04:19 | ECG_ITS ---
Test Date: 2025-02-16 04:29:55 Measurements Intervals [place] Rate: 91 P: 92 ND: 238 QRS: -48 QRSD: 167 T: 135 QT: 425 QTc: 523 Interpretive Statements SINUS RHYTHM WITH FIRST DEGREE AV BLOCK LEFT AXIS DEVIATION [QRS AXIS < -30] LEFT BUNDLE BRANCH BLOCK [120+ ms QRS DURATION, 80+ ms Q/S IN V1/V2, 85+ ms R IN I/aVL/V5/V6] Electronically Signed On 02-16-2025 15:38:19 CDT by Arianna Zhao M.D.
--- NOTE | 2025-02-16 07:40 | WPDANESEPPF ---
Anes - Initial Pre Proc Eval Procedure: Operation Date: 02/16/25 07:45 Proposed Procedures p Intertrochanteric Nail - Kofi Landin MD Date/Time: 02/16/25 07:40 Surgeon: Lory Branch DO Pre Op Diagnosis: Right Hip Fracture Patient Data Age: 79 Gender: M Height: 1.83 m Weight: 70.5 kg Last Vital Signs Temp 97.0 F L 02/16/25 04:00 Pulse 95 02/16/25 04:00 Resp 16 02/16/25 04:00 BP 122/69 02/16/25 04:00 Pulse Ox 98 02/16/25 04:00 Allergies Allergy/AdvReac Type Severity Reaction Status Date / Time doxycycline Allergy Intermediate Hives Verified 02/15/25 21:10 Home Medications Medication Instructions Recorded Confirmed Type aspirin 81 mg tablet,delayed 81 mg PO DAILY 02/16/25 02/16/25 History release (Adult Low Dose Aspirin) sacubitril 49 mg-valsartan 51 mg 1 tablet PO DAILY 02/16/25 02/16/25 History tablet (Entresto) Patient hx anesthesia problems: none Family hx anesthesia problems: none Results Review: All pre-operative results and documents have been reviewed as part of the pre-operative evaluation. 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 He patient smoked a combination of BiPAP, cigarettes and cigars on and off for 65 years. 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 Spiritual care concerns: No Anes - Eval Final PreProcedure Day of Procedure 02/16/25 07:40 Patient weight: normal Lungs: normal air movement and decreased breath sounds Airway: Mallampati scale class II and special considerations (Edentulous. ) Neurological: alert and oriented Last oral intake: >/= 8 hours ASA classification: III Emergent: no Anesthetic plan: proceed Anesthesia type and monitoring: general LMA and standard monitoring Results Review: All pre-operative results and documents have been reviewed as part of the pre-operative evaluation. COPD ex smoker, quit 2017, hx of pneumonectomy according to EMR, pt uncertain. EKG w NSR/LBBB. Pt is assisted DNR but agrees to limited res goal 3 as per the DNR form which we are not able to locate. Discussed w OR team and MANAGER OF REVENUE and agree to proceed. Informed Consent: The patient's anesthetic plan and its attendant risks and benefits were discussed with the patient/family/POA. Questions were solicited and answers provided to the satisfaction of the patient/family/POA.
--- NOTE | 2025-02-16 07:40 | WPDHPUPDATE1 ---
History and Physical Update Update Date/Time: 02/16/25 07:40 History and Physical has been reviewed, including an updated exam of the patient. There are NO changes in the patient's condition. Risks, benefits, and alternatives have been discussed and questions answered. Patient agrees to proceed with procedure. Planned procedure is a Right Hip Fracture Fixation with gayla and screws
--- NOTE | 2025-02-16 07:41 | PM.IMHP ---
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 He patient smoked a combination of BiPAP, cigarettes and cigars on and off for 65 years. 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 Spiritual care concerns: No Meds Home Medications and Allergies Home Medications Medication Instructions Recorded Confirmed Type aspirin 81 mg tablet,delayed 81 mg PO DAILY 02/16/25 02/16/25 History release (Adult Low Dose Aspirin) sacubitril 49 mg-valsartan 51 mg 1 tablet PO DAILY 02/16/25 02/16/25 History tablet (Entresto) Allergies Allergy/AdvReac Type Severity Reaction Status Date / Time doxycycline Allergy Intermediate Hives Verified 02/15/25 21:10 Vital Signs Vital Signs - 24 hr 02/16/25 02:54 02/16/25 04:00 02/16/25 04:00 Temperature 36.6 C 36.1 C L Pulse Rate 100 95 95 Respiratory Rate 20 16 Blood Pressure 147/74 H 122/69 Pulse Oximetry 98 98 Exam Narrative: Alert and oriented. Comfortable and answers questions appropriately. - right lower extremity examination shows pain with ROM of leg - no swelling tenderness or deformity of knees, or ankles. - upper extremity exam shows no swelling tenderness or deformity Const: General: cooperative, no acute distress and alert Nutritional Appearance: average body habitus Assessment and Plan Assessment and plan (1) Closed right hip fracture: Code(s): S72.001A - Fracture of unspecified part of neck of right femur, initial encounter for closed fracture Status: Acute Plan 79 yr old male with Right Hip IT fracture after a fall in [place] yesterday. He was travelling from [place] to home in [facility]. Visiting his xwife in [place]. 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 - transferred to [facility] - all children live out of [place], [place] and [place]
[2025-02-16] MEDS: ceFAZolin 2 GM/D5W 50 ML 2 GM/50 ML BAG IVPB ×3 (07:49→23:34)
[2025-02-16] MEDS: LACTATED RINGERS 1,000 ML 30 ML IV CONT (07:50)
[2025-02-16] MEDS: LIDO 1%/EPINEPHRINE 1:100,000 20 ML VIAL 10 ML INFILTRATE (08:25)
[2025-02-16] MEDS: ceFAZolin SODIUM 1 GM VIAL (08:25)
[2025-02-16] MEDS: fentaNYL CITRATE INJ (*CRX) 100 MCG/2 ML VIAL 25 MCG IV PUSH (09:18)
--- NOTE | 2025-02-16 09:35 | P.OP_ITS ---
Procedure Note - Detailed Date of Procedure 02/16/25 Pre-op Diagnosis Right Hip Fracture Post-op Diagnosis Same Procedure Performed Right Hip Intra-medullary Nail fixation Surgeon oKfi Landin MD Anesthesia General Indications Right Hip unstable Intertrochanteric fracture Findings Right Hip Unstable intertrochanteric fracture. Description of Procedure After obtaining consent with regard to the procedure which is a right hip intertrochanteric fracture intramedullary nail fixation, patient was advised of the risks benefits alternatives complications of this procedure which include but are not limited to infection nonunion malunion however blood vessel injury and agrees to proceed. The correct site of surgery was marked in the holding area. The patient was then brought to the operative placed in the supine position at which time he underwent general anesthesia. He was then placed on the fracture table with the left lower extremity flexed at 90° at the hip to the knee and the right lower extremity in full extension and placed in traction. Fluoroscopy was 1st used to verify anatomic reduction in both AP and lateral views. The right hip was then prepped and draped in a standard sterile fashion. Time-out was performed to verify correct patient correct site of surgery correct procedure and to verify intravenous antibiotics 2 g of Ancef were administered within 1 hour of the incision time. A 1 in incision was created just proximal to the greater trochanter I then placed a guidewire and position and verified the starting position to be optimal for nail placement in both the AP and lateral views. I then proceeded to create a opening hole with a Reamer. I then placed a ball-tipped guidewire through. I then proceeded to place the gamma 3 nail in position. I ensured that in that t he nail was in good position in order to place the additional guidewire which goes into the femoral neck and head center on center position based on AP and lateral views. After this was confirmed that the guidewire for the screw placement was in place I then proceeded to drill. Initially I measured at 120 mm and upon placement of the 120 mm screw it was determined that it was 10 mm too long. Then remove this 120 mm screw and then placed the 110 mm screw in good position centered center views were obtained with fluoroscopy to verify good nail plate positioning and also good screw positioning. After this was done I then placed a distal interlocking screw in the dynamic position. We then removed the jig and irrigated all 3 incision sites copiously and then I closed the incision site using 2-0 Vicryl suture and then Steri strips in the right hip was then tensioned sterile fashion. He was then taken out of traction table and transferred to the recovery room in stable condition. The patient will be weight-bearing as tolerated. We will anticoagulate with 80 mg of aspirin twice a day. Implants Eliel Gamma 3 IM Niko Estimated Blood Loss 50 Drains No Packing No Pathology None sent Complications No immediate complications Condition Stable Disposition PACU
--- NOTE | 2025-02-16 09:42 | P.OP_ITS ---
Procedure Note - Detailed Date of Procedure 02/16/25 Pre-op Diagnosis Right Hip Fracture Post-op Diagnosis Same Procedure Performed Right hip intertrochanteric fracture intramedullary gayla fixation Surgeon Kofi Landin MD Anesthesia General Indications Unstable right hip intertrochanteric fracture Description of Procedure After obtaining consent for a right hip intertrochanteric fracture intramedullary gayla fixation of the patient was then brought to the operating room placed in supine position which time he underwent general anesthesia. The right lower extremity was then placed in traction with left lower extremity flexed at 90° of the hip in the knee. After obtaining reduction verified by fluoroscopy the right hip was then prepped and draped in standard sterile fashion. A 1 in incision was made proximal to the greater trochanteric area a guidewire was placed. Fluoroscopy was used to verify adequate positioning the entry hole into the greater trochanter. After this was done a 15 mm Reamer was used to create a hole and then I placed the int ramedullary gayla down and determine the proximal distal alignment and positioning of the gayla with raspy. I then proceeded to place a guidewire into the femoral neck and had several center position AP and lateral views. After this was done the drill hole pin to place a screw. I then placed 1 distal interlocking screw. And then irrigated all 3 incision sites and closed using Monocryl suture and Steri-Strips. The right hip with advances drill fashion is transferred to the recovery room stable pivot stable condition. Estimated Blood Loss 50 Drains No Packing No Pathology None sent Complications No immediate complications Condition Stable Disposition PACU
--- NOTE | 2025-02-16 11:23 | P.HP_ITS ---
H&P: HPI History of Present Illness Date/Time: 02/16/25 11:23 Chief Complaint: Right hip pain. Narrative: Patient is a 79 year old male that came to hospital from [place] after falling at a rest stop in [place] and driving himself to [place] [employer] to get help. Patient transferred here from [place]. Patient underwent right hip intra-medullary nail fixation this morning. Patient reports back pain that is a 4 , frequent, and aching. Patient denies chest pain, palpitations, headache, dizziness, nausea, or vomiting. Patient reports that he quit smoking in 2018, he smoked a pack a day for 30 years. Patient uses an Albuterol inhaler PRN. Right Hip X-ray showed: FINDINGS: BONES: Fracture in the right hip intertrochanteric area. HIP JOINT SPACES: Moderate osteoarthritis bilaterally. SACROILIAC JOINT SPACES/LUMBAR SPINE: The sacroiliac joint spaces are normal. Mild degenerative changes of the visualized lower lumbar spine. PUBIC SYMPHYSIS: Pubic symphysitis. SOFT TISSUES: Normal. IMPRESSION: Right intertrochanteric area. Bilateral severe hip osteoarthritic changes Chest X-ray showed: Severe bullous emphysematous change with postoperative volume loss and apical thickening of the right hemithorax. 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 He patient smoked a combination of BiPAP, cigarettes and cigars on and off for 65 years. 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 Spiritual care concerns: No Meds Home Medications and Allergies Home Medications Medication Instructions Recorded Confirmed Type aspirin 81 mg tablet,delayed 81 mg PO DAILY 02/16/25 02/16/25 History release (Adult Low Dose Aspirin) sacubitril 49 mg-valsartan 51 mg 1 tablet PO DAILY 02/16/25 02/16/25 History tablet (Entresto) Allergies Allergy/AdvReac Type Severity Reaction Status Date / Time doxycycline Allergy Intermediate Hives Verified 02/15/25 21:10 Vital Signs Vital Signs - 24 hr 02/16/25 02:54 02/16/25 04:00 02/16/25 04:00 Temperature 97.9 F 97.0 F L Pulse Rate 100 95 95 Respiratory Rate 20 16 Blood Pressure 147/74 H 122/69 Pulse Oximetry 98 98 Oxygen Delivery Oxygen Flow Rate 02/16/25 09:05 02/16/25 09:08 02/16/25 09:20 Temperature 97.0 F L Pulse Rate 90 90 94 Respiratory Rate 12 14 14 Blood Pressure 143/69 H 142/75 H 130/69 Pulse Oximetry 100 99 99 Oxygen Delivery Simple Face Mask Simple Face Mask Simple Face Mask Oxygen Flow Rate 8 8 8 02/16/25 09:35 02/16/25 09:50 02/16/25 10:00 Temperature 97.0 F L Pulse Rate 91 90 85 Respiratory Rate 15 12 12 Blood Pressure 138/65 146/69 H 122/68 Pulse Oximetry 93 96 97 Oxygen Delivery Room Air Nasal Cannula Nasal Cannula Oxygen Flow Rate 2 2 02/16/25 10:15 02/16/25 10:25 02/16/25 10:30 Temperature Pulse Rate 88 95 90 Respiratory Rate 12 14 16 Blood Pressure 132/67 126/74 131/70 Pulse Oximetry 96 96 96 Oxygen Delivery Nasal Cannula Nasal Cannula Nasal Cannula Oxygen Flow Rate 2 2 2 02/16/25 10:48 02/16/25 11:03 Temperature 98.4 F 97.5 F L Pulse Rate 91 89 Respiratory Rate 16 16 Blood Pressure 130/58 L 120/63 Pulse Oximetry 93 98 Oxygen Delivery Oxygen Flow Rate Exam Const: General: no acute distress and uncomfortable Eyes: Sclera: sclerae normal Resp: Effort & Inspection: normal respiratory effort Auscultation: diminished lung sounds Cardio: Rate: regular rate Rhythm: regular rhythm GI: GI Palp: Yes Soft to palpation Auscultation: normal bowel sounds Skin: Other: 3 gauze dressings on right hip, middle d ressing serosanguineous. No swelling or redness. Neuro: Speech: normal speech Extrem: General: no pedal edema Psych: Mental Status: mental status grossly normal Affect: normal affect Assessment and Plan Assessment and plan (1) Closed right hip fracture: Code(s): S72.001A - Fracture of unspecified part of neck of right femur, initial encounter for closed fracture Status: Acute Assessment and Plan: * Fell at rest stop in [place]. * Right Hip X-ray showed: FINDINGS: BONES: Fracture in the right hip intertrochanteric area. HIP JOINT SPACES: Moderate osteoarthritis bilaterally. SACROILIAC JOINT SPACES/LUMBAR SPINE: The sacroiliac joint spaces are normal. Mild degenerative changes of the visualized lower lumbar spine. PUBIC SYMPHYSIS: Pubic symphysitis. SOFT TISSUES: Normal. IMPRESSION: Right intertrochanteric area. Bilateral severe hip osteoarthritic changes * Patient underwent right hip intra-medullary nail fixation this morning. * Cefazolin 2 gram IVPB x 4 doses. * NS @ 125 ml/hr. * Teds and SCDs. * PT/OT (2) COPD (chronic obstructive pulmonary disease): Code(s): J44.9 - Chronic obstructive pulmonary disease, unspecified Status: Acute Assessment and Plan: * Former smoker. * Chest X-ray showed: Severe bullous emphysematous change with postoperative volume loss and apical thickening of the right hemithorax. * Albuterol 2 puffs q6 PRN. (3) CHRISTOPHER (acute kidney injury): Code(s): N17.9 - Acute kidney failure, unspecified Status: Acute Assessment and Plan: * Creatinine 1.50 on admission, improved to 1.37 with IV fluids. * Continue to trend and encourage oral intake. Quality VTE Prophylaxis VTE prophylaxis: mechanical ordered Hospitalist [facility] Advance Care Plan I have confirmed that the patient's Advanced Care Plan is present, code status is documented, or surrogate decision maker is listed in patient medical record.: Yes Medication Reconciliation I have utilized all available resources to obtain, update and review the patients current medications (includes all prescriptions, OTC, herbals, cannabis, and nutritional supplements).: Yes
[2025-02-16] MEDS: SODIUM CHLORIDE 0.9% IV 1,000 ML 125 ML IV CONT ×2 (13:10→22:18)
[2025-02-16 14:39] LABS: Basophils Percent Auto 0.2 % (0.2-1.2); Eosinophils Percent Auto 0.1 % (0-4.4); Hematocrit 43.3 % (42.0-52.0); Hemoglobin 13.9 g/dL (14.0-18.0); Immature Granulocyte Absolute 0.03 K/mm3 (0.00-0.031); Immature Granulocyte Percent A 0.3 % (0-0.5); Lymphocytes Percent Auto 5.4 % (18.3-44.2); Mean Corpuscular HGB Conc 32.1 g/dl (32-36); Mean Corpuscular Hemoglobin 34.1 pg (26-34); Mean Corpuscular Volume 106.1 fl (80-100); Mean Platelet Volume 10.5 fl (7.4-10.4); Monocytes Percent Auto 8.9 % (2.6-8.5); Neutrophils Absolute Auto 9.4 K/mm3 (1.3-6.7); Neutrophils Percent Auto 85.1 % (45.5-73.1); Platelet Count Result 182 k/mm3 (150-375); Red Blood Count 4.08 M/mm3 (4.6-6.20); Red Cell Distribution Width 15.2 % (11.5-14.5); White Blood Count 11.1 K/mm3 (4.5-10.0)
[2025-02-16 14:49] LABS: Alanine Aminotransferase 19 U/L (6-50); Albumin Level 3.7 g/dL (3.5-5.1); Alkaline Phosphatase 112 U/L (38-126); Anion Gap 9 mmol/L (4-12); Aspartate Amino Transferase 28 U/L (17-59); Bilirubin,Total 0.8 mg/dL (0.2-1.3); Blood Urea Nitrogen 22 mg/dL (9-20); Calcium 8.7 mg/dL (8.4-10.2); Carbon Dioxide 22 mmol/L (22-30); Chloride 104 mmol/L (98-107); Estimated CRCL calculation 39 ml/min; Estimated Glomerular Filt Rate 50; Glucose 118 mg/dL (65-110); Magnesium 1.9 mg/dL (1.6-2.3); Potassium 4.8 mmol/L (3.4-5.0); Sodium 135 mmol/L (137-145)
[2025-02-16 15:07] LABS: Anisocytosis 2+; Band Neutrophils Percent 0 % (0-6); Macrocytosis 1+ (NORMAL); Platelet Estimate Adequate (Adequate); Schistocytes None Seen
[2025-02-16] MEDS: IBUPROFEN IV 800 MG/200 ML 800 MG/200 ML BAG 400 MG IVPB (16:00)
[2025-02-16] MEDS: SENNA/DOCUSATE SODIUM TABLET 2 TAB PO (16:04)
[2025-02-16] MEDS: ASPIRIN 81 MG ENTERIC TABLET PO (20:04)
[2025-02-17] VITALS (9 sets, daily range): BP systolic 97–120; BP diastolic 60–65; PULSE 78–105; RESP 14–16; TEMP 36.1–36.4; O2SAT 91–100
[2025-02-17] MEDS: HYDROcodone/acetaminophen (*CRX) 5-325 MG TABLET 1 TAB PO ×2 (03:25→12:24)
[2025-02-17] MEDS: SODIUM CHLORIDE 0.9% IV 1,000 ML 125 ML IV CONT (05:46)
[2025-02-17] MEDS: ceFAZolin 2 GM/D5W 50 ML 2 GM/50 ML BAG IVPB (06:01)
[2025-02-17 06:05] LABS: Basophils Percent Auto 0.5 % (0.2-1.2); Eosinophils Percent Auto 0.5 % (0-4.4); Hematocrit 38.6 % (42.0-52.0); Hemoglobin 12.2 g/dL (14.0-18.0); Immature Granulocyte Absolute 0.04 K/mm3 (0.00-0.031); Immature Granulocyte Percent A 0.6 % (0-0.5); Lymphocytes Absolute Auto 0.36 K/mm3 (0.9-3.2); Lymphocytes Percent Auto 5.8 % (18.3-44.2); Mean Corpuscular HGB Conc 31.6 g/dl (32-36); Mean Corpuscular Hemoglobin 33.7 pg (26-34); Mean Corpuscular Volume 106.6 fl (80-100); Mean Platelet Volume 10.7 fl (7.4-10.4); Monocytes Absolute Auto 0.7 K/mm3 (0.1-0.6); Monocytes Percent Auto 10.9 % (2.6-8.5); Neutrophils Absolute Auto 5.1 K/mm3 (1.3-6.7); Neutrophils Percent Auto 81.7 % (45.5-73.1); Platelet Count Result 142 k/mm3 (150-375); Red Blood Count 3.62 M/mm3 (4.6-6.20); Red Cell Distribution Width 15.1 % (11.5-14.5); White Blood Count 6.2 K/mm3 (4.5-10.0)
[2025-02-17 06:15] LABS: Anion Gap 8 mmol/L (4-12); Blood Urea Nitrogen 22 mg/dL (9-20); Calcium 8.2 mg/dL (8.4-10.2); Carbon Dioxide 21 mmol/L (22-30); Chloride 107 mmol/L (98-107); Estimated CRCL calculation 38 ml/min; Estimated Glomerular Filt Rate 49; Glucose 84 mg/dL (65-110); Sodium 136 mmol/L (137-145)
[2025-02-17 06:48] LABS: Macrocytosis 1+ (NORMAL); Platelet Estimate Slightly Decreased (Adequate)
[2025-02-17 06:49] LABS: Schistocytes None Seen; Spherocytes 1+
--- NOTE | 2025-02-17 07:05 | WPDANESPN ---
Anes - Prog Note Post-Op Date/Time: 02/17/25 07:05 Cardiovascular status: normal Respiratory status: normal Airway patency: baseline Mental status: baseline Post-Op hydration status: normal Vital Signs: Last Vital Signs Temp 36.4 C 02/17/25 05:51 Pulse 83 02/17/25 05:51 Resp 14 02/17/25 05:51 BP 120/60 02/17/25 05:51 Pulse Ox 98 02/17/25 05:51 O2 Del Method Nasal Cannula 02/16/25 20:00 O2 Flow Rate 1 02/16/25 20:00 Pain Score (VAS): 2 I/O: Intake & Output 02/16/25 02/16/25 02/17/25 15:59 23:59 07:59 Intake Total 150 1200 983.3 Output Total 200 300 450 Balance -50 900 533.3 Laboratory Tests 02/17/25 05:45 02/17/25 05:45 02/16/25 02/17/25 14:33 05:45 WBC 11.1 H 6.2 RBC 4.08 L 3.62 L Hgb 13.9 L 12.2 L Hct 43.3 38.6 L MCV 106.1 H 106.6 H MCH 34.1 H 33.7 MCHC 32.1 31.6 L RDW 15.2 H 15.1 H Plt Count 182 142 L MPV 10.5 H 10.7 H Immature Gran % (Auto) 0.3 0.6 H Neut % (Auto) 85.1 H 81.7 H Lymph % (Auto) 5.4 L 5.8 L [place] % (Auto) 8.9 H 10.9 H Eos % (Auto) 0.1 0.5 Baso % (Auto) 0.2 0.5 Lymph # (Auto) 0.60 L 0.36 L [place] # (Auto) 1.0 H 0.7 H Eos # (Auto) 0.0 0.0 Baso # (Auto) 0.0 0.0 Abs Immat Gran (auto) 0.03 0.04 H Absolute Neuts (auto) 9.4 H 5.1 Absolute Nucleated RBC 0.000 0.000 Band Neutrophils % 0 Not Reportable Nucleated RBC % 0.0 0.0 Platelet Estimate Adequate Slightly decreased Anisocytosis 2+ Macrocytosis 1+ 1+ Spherocytes 1+ Schistocytes None seen None seen Sodium 135 L 136 L Potassium 4.8 4.0 Chloride 104 107 Carbon Dioxide 22 21 L Anion Gap 9 8 BUN 22 H 22 H Creatinine 1.37 H 1.40 H Estim Creat Clear Calc 39 38 Estimated GFR 50 L 49 L Glucose 118 H 84 Calcium 8.7 8.2 L Magnesium 1.9 Total Bilirubin 0.8 AST 28 ALT 19 Alkaline Phosphatase 112 Total Protein 7.0 Albumin 3.7 Post-procedural complaints: none Patient Feedback: Patient satisfied with anesthetic care.
--- NOTE | 2025-02-17 08:38 | ECG_ITS ---
Test Date: 2025-02-17 09:05:36 Measurements Intervals [place] Rate: 99 P: -15 NH: 208 QRS: -29 QRSD: 175 T: 130 QT: 401 QTc: 515 Interpretive Statements SINUS RHYTHM WITH FIRST DEGREE AV BLOCK LEFT BUNDLE BRANCH BLOCK [120+ ms QRS DURATION, 80+ ms Q/S IN V1/V2, 85+ ms R IN I/aVL/V5/V6] Compared to ECG 02/16/2025 04:29:55 NO SIGNIFICANT CHANGES Electronically Signed On 02-19-2025 14:02:44 CDT by Nikko Ko M.D.
[2025-02-17] MEDS: SENNA/DOCUSATE SODIUM TABLET 2 TAB PO ×2 (10:23→18:11)
[2025-02-17] MEDS: ASPIRIN 81 MG ENTERIC TABLET PO ×2 (10:23→20:11)
[2025-02-17] MEDS: polyethylene glycoL 3350 17 GM POWD.PACK PO (10:23)
--- NOTE | 2025-02-17 11:47 | P.PNIM_ITS ---
Progress Note: A&P Assessment and Plan (1) Closed right hip fracture: Code(s): S72.001A - Fracture of unspecified part of neck of right femur, initial encounter for closed fracture Status: Acute Assessment and Plan: * Fell at rest stop in [place]. * Right Hip X-ray showed: FINDINGS: BONES: Fracture in the right hip intertrochanteric area. HIP JOINT SPACES: Moderate osteoarthritis bilaterally. SACROILIAC JOINT SPACES/LUMBAR SPINE: The sacroiliac joint spaces are normal. Mild degenerative changes of the visualized lower lumbar spine. PUBIC SYMPHYSIS: Pubic symphysitis. SOFT TISSUES: Normal. IMPRESSION: Right intertrochanteric area. Bilateral severe hip osteoarthritic changes * Patient underwent right hip intra-medullary nail fixation this morning. * Completed Cefazolin 2 gram IVPB x 4 doses. * NS @ 125 ml/hr. * Teds and SCDs. * PT/OT (2) COPD (chronic obstructive pulmonary disease): Code(s): J44.9 - Chronic obstructive pulmonary disease, unspecified Status: Acute Assessment and Plan: * Former smoker. * Chest X-ray showed: Severe bullous emphysematous change with postoperative volume loss and apical thickening of the right hemithorax. * Albuterol 2 puffs q6 PRN. (3) CHRISTOPHER (acute kidney injury): Code(s): N17.9 - Acute kidney failure, unspecified Status: Acute Assessment and Plan: * Creatinine 1.50 on admission, improved to 1.40 with IV fluids. * Continue to trend and encourage oral intake. Subjective Date/time seen: 02/17/25 11:47 Interval history: Patient lying in bed with hob elevated. Friend at bedside. Patient reports pain in right hip is a 2 , frequent, and, aching. Patient denies chest pain, palpitations, headache, dizziness, nausea, or vomiting. Review of Systems Review of Systems: All systems reviewed & are unremarkable except as noted in HPI and below Exam Const: General: no acute distress and uncomfortable Resp: Effort & Inspection: normal respiratory effort Auscultation: diminished lung sounds Cardio: Rate: regular rate Rhythm: regular rhythm GI: GI Palp: Yes Soft to palpation Auscultation: normal bowel sounds Skin: Other: 3 gauze dressings with clear dressing ov er the dressings. C/D/I. No redness or swelling. Neuro: Speech: normal speech Extrem: General: no pedal edema Psych: Mental Status: mental status grossly normal Affect: normal affect Objective Data Vital Signs Vital Signs: Vital Signs - 24 hr 02/16/25 12:00 02/16/25 12:00 02/16/25 12:33 Temperature 97.5 F L Pulse Rate 96 100 Respiratory Rate 16 Blood Pressure 127/58 L Pulse Oximetry 96 96 Oxygen Delivery Nasal Cannula Oxygen Flow Rate 1 02/16/25 14:08 02/16/25 15:10 02/16/25 16:02 Temperature 97.5 F L Pulse Rate 93 94 Respiratory Rate 16 Blood Pressure 131/55 L Pulse Oximetry 96 Oxygen Delivery Nasal Cannula Oxygen Flow Rate 1 02/16/25 19:01 02/16/25 20:00 02/16/25 20:00 Temperature 97.2 F L Pulse Rate 77 77 97 Respiratory Rate 16 16 Blood Pressure 125/62 Pulse Oximetry 97 97 Oxygen Delivery Nasal Cannula Oxygen Flow Rate 1 02/17/25 00:00 02/17/25 03:01 02/17/25 05:51 Temperature 97 F L 97.6 F Pulse Rate 86 89 83 Respiratory Rate 16 14 Blood Pressure 118/65 120/60 Pulse Oximetry 97 98 Oxygen Delivery Oxygen Flow Rate 02/17/25 08:00 Temperature Pulse Rate Respiratory Rate Blood Pressure Pulse Oximetry 98 Oxygen Delivery Nasal Cannula Oxygen Flow Rate 1 Intake/Output Intake/Output: Intake & Output 02/14/25 02/15/25 02/16/25 02/17/25 23:59 23:59 23:59 23:59 Intake Total 1350 1223.3 Output Total 825 450 Balance 525 773.3 Meds/Results Medications: Active Medications Generic Name Dose Route Start Last Admin Trade Name Freq PRN Reason Stop Dose Admin Acetaminophen 650 mg 02/16/25 03:17 Acetaminophen 325 Mg Tablet PO Q4H PRN Fever Acetaminophen 500 mg 02/16/25 09:21 Acetaminophen 500 Mg Tablet PO Q6H PRN Pain Rated 1-3 Hydrocodone Bitart/Acetaminophen 1 tab 02/16/25 09:21 02/17/25 03:25 Hydrocodone/Acetaminophen (*Crx) 5-325 Mg Tablet PO 1 tab Q4H PRN Administration Pain Rated 4-6 Hydrocodone Bitart/Acetaminophen 1 tab 02/16/25 09:21 Hydrocodone/Acetaminophen (*Crx) 10-325 Mg Tablet PO Q4H PRN Pain Rated 7-10 Al Hydrox/Mg Hydrox/Simethicone 30 ml 02/16/25 03:22 Mag Hydrox/Al Hydrox/Simeth 30 Ml Udc PO Q6H PRN Indigestion Albuterol 2 puff 02/16/25 15:32 Albuterol Sulfate (*Sp) Aerosol 1 Puff INHALATION Q6HRT PRN Shortness Of Breath Aspirin 81 mg 02/16/25 21:00 02/17/25 10:23 Aspirin 81 Mg Enteric Tablet PO 81 mg Q12HR SIMRAN Administration Hydromorphone HCl 1 mg 02/16/25 09:15 Hydromorphone Hcl Inj (*Crx) 2 Mg/Ml Vial IV PUSH Q2H PRN Breakthrough Pain Rated 7-10 or NPO Hydromorphone HCl 0.5 mg 02/16/25 09:15 Hydromorphone Hcl Inj (*Crx) 2 Mg/Ml Vial IV PUSH Q2H PRN Breakthrough Pain Rated 4-6 or NPO Hydroxyzine Pamoate 50 mg 02/16/25 09:15 Hydroxyzine Pamoate 25 Mg Capsule PO Q4H PRN Itching Sodium Chloride 1,000 mls @ 125 mls/hr 02/16/25 09:15 02/17/25 05:46 Normal Saline Iv IV CONT 125 mls/hr .Q8H SIMRAN Administration Ibuprofen 800 mg in 200 mls @ 400 mls/hr 02/16/25 09:15 02/16/25 16:30 Caldolor 800 Mg/200 Ml IVPB Infused Q6H PRN Infusion Breakthrough Pain Rated 1-3 or NPO Naloxone HCl 0.1 mg 02/16/25 09:15 Naloxone Hcl 0.4 Mg/Ml Vial IV PUSH Q2M PRN Opiate Reversal Ondansetron HCl 4 mg 02/16/25 09:15 Ondansetron Inj 4 Mg/2 Ml Vial IV PUSH Q4H PRN Nausea And Vomiting Polyethylene Glycol 17 gm 02/17/25 09:00 02/17/25 10:23 Polyethylene Glycol 3350 17 Gm Powd.Pack PO 17 gm QAM SIMRAN Administration Sacubitril/Valsartan 1 tablet 02/17/25 09:00 Sacubitril/Valsartan 49-51 Mg Tablet PO Q12HR SIMRAN Senna/Docusate Sodium 2 tab 02/16/25 17:00 02/17/25 10:23 Senna/Docusate Sodium Tablet PO 2 tab BID SIMRAN Administration Radiology Results: ITS Impressions Intraoperative X-Ray 02/16/25 09:19 IMPRESSION: 1. Fluoroscopy utilized during internal fixation of an intertrochanteric fracture the proximal right femur which is in near-anatomic alignment. Labs Labs: Laboratory Results - last 24 hr 02/16/25 02/17/25 14:33 05:45 WBC 11.1 H 6.2 RBC 4.08 L 3.62 L Hgb 13.9 L 12.2 L Hct 43.3 38.6 L MCV 106.1 H 106.6 H MCH 34.1 H 33.7 MCHC 32.1 31.6 L RDW 15.2 H 15.1 H Plt Count 182 142 L MPV 10.5 H 10.7 H Immature Gran % (Auto) 0.3 0.6 H Neut % (Auto) 85.1 H 81.7 H Lymph % (Auto) 5.4 L 5.8 L [place] % (Auto) 8.9 H 10.9 H Eos % (Auto) 0.1 0.5 Baso % (Auto) 0.2 0.5 Lymph # (Auto) 0.60 L 0.36 L [place] # (Auto) 1.0 H 0.7 H Eos # (Auto) 0.0 0.0 Baso # (Auto) 0.0 0.0 Abs Immat Gran (auto) 0.03 0.04 H Absolute Neuts (auto) 9.4 H 5.1 Absolute Nucleated RBC 0.000 0.000 Band Neutrophils % 0 Not Reportable Nucleated RBC % 0.0 0.0 Platelet Estimate Adequate Slightly decreased Anisocytosis 2+ Macrocytosis 1+ 1+ Spherocytes 1+ Schistocytes None seen None seen Sodium 135 L 136 L Potassium 4.8 4.0 Chloride 104 107 Carbon Dioxide 22 21 L Anion Gap 9 8 BUN 22 H 22 H Creatinine 1.37 H 1.40 H Estim Creat Clear Calc 39 38 Estimated GFR 50 L 49 L Glucose 118 H 84 Calcium 8.7 8.2 L Magnesium 1.9 Total Bilirubin 0.8 AST 28 ALT 19 Alkaline Phosphatase 112 Total Protein 7.0 Albumin 3.7 Quality VTE Prophylaxis VTE prophylaxis: mechanical ordered
[2025-02-17] MEDS: SACUBITRIL/VALSARTAN 49-51 MG TABLET 1 TABLET PO ×2 (12:05→20:11)
[2025-02-18] VITALS (9 sets, daily range): BP systolic 99–119; BP diastolic 53–55; PULSE 76–97; RESP 16–18; TEMP 36.5–36.9; O2SAT 93–96; BMI 21.0
[2025-02-18] MEDS: HYDROcodone/acetaminophen (*CRX) 5-325 MG TABLET 1 TAB PO (05:10)
[2025-02-18 06:09] LABS: Basophils Percent Auto 0.2 % (0.2-1.2); Eosinophils Absolute Auto 0.1 K/mm3 (0-0.3); Eosinophils Percent Auto 1.8 % (0-4.4); Hematocrit 36.3 % (42.0-52.0); Hemoglobin 11.5 g/dL (14.0-18.0); Immature Granulocyte Absolute 0.03 K/mm3 (0.00-0.031); Immature Granulocyte Percent A 0.6 % (0-0.5); Lymphocytes Absolute Auto 0.47 K/mm3 (0.9-3.2); Lymphocytes Percent Auto 9.2 % (18.3-44.2); Mean Corpuscular HGB Conc 31.7 g/dl (32-36); Mean Corpuscular Volume 107.4 fl (80-100); Mean Platelet Volume 10.7 fl (7.4-10.4); Monocytes Absolute Auto 0.7 K/mm3 (0.1-0.6); Monocytes Percent Auto 13.5 % (2.6-8.5); Neutrophils Absolute Auto 3.8 K/mm3 (1.3-6.7); Neutrophils Percent Auto 74.7 % (45.5-73.1); Platelet Count Result 141 k/mm3 (150-375); Red Blood Count 3.38 M/mm3 (4.6-6.20); Red Cell Distribution Width 15.1 % (11.5-14.5); White Blood Count 5.1 K/mm3 (4.5-10.0)
[2025-02-18 06:17] LABS: Alanine Aminotransferase 8 U/L (6-50); Albumin Level 2.9 g/dL (3.5-5.1); Alkaline Phosphatase 79 U/L (38-126); Anion Gap 6 mmol/L (4-12); Aspartate Amino Transferase 21 U/L (17-59); Bilirubin,Total 0.5 mg/dL (0.2-1.3); Blood Urea Nitrogen 19 mg/dL (9-20); Calcium 8.3 mg/dL (8.4-10.2); Carbon Dioxide 24 mmol/L (22-30); Chloride 107 mmol/L (98-107); Estimated CRCL calculation 41 ml/min; Estimated Glomerular Filt Rate 53; Glucose 88 mg/dL (65-110); Magnesium 1.9 mg/dL (1.6-2.3); Potassium 4.3 mmol/L (3.4-5.0); Sodium 137 mmol/L (137-145)
[2025-02-18 06:58] LABS: Macrocytosis 1+ (NORMAL); Platelet Estimate Slightly Decreased (Adequate)
[2025-02-18 06:59] LABS: Burr Cells 1+; Schistocytes None Seen
[2025-02-18] MEDS: polyethylene glycoL 3350 17 GM POWD.PACK PO (07:59)
[2025-02-18] MEDS: SACUBITRIL/VALSARTAN 49-51 MG TABLET 1 TABLET PO ×2 (07:59→20:24)
[2025-02-18] MEDS: ASPIRIN 81 MG ENTERIC TABLET PO ×2 (07:59→20:24)
[2025-02-18] MEDS: SENNA/DOCUSATE SODIUM TABLET 2 TAB PO ×2 (07:59→17:22)
--- NOTE | 2025-02-18 11:31 | P.PNIM_ITS ---
Progress Note: A&P Assessment and Plan (1) Closed right hip fracture: Code(s): S72.001A - Fracture of unspecified part of neck of right femur, initial encounter for closed fracture Status: Acute Assessment and Plan: * Fell at rest stop in [place]. * Right Hip X-ray showed: FINDINGS: BONES: Fracture in the right hip intertrochanteric area. HIP JOINT SPACES: Moderate osteoarthritis bilaterally. SACROILIAC JOINT SPACES/LUMBAR SPINE: The sacroiliac joint spaces are normal. Mild degenerative changes of the visualized lower lumbar spine. PUBIC SYMPHYSIS: Pubic symphysitis. SOFT TISSUES: Normal. IMPRESSION: Right intertrochanteric area. Bilateral severe hip osteoarthritic changes * Patient underwent right hip intra-medullary nail fixation this morning. * Completed Cefazolin 2 gram IVPB x 4 doses. * Teds and SCDs. * PT/OT (2) COPD (chronic obstructive pulmonary disease): Code(s): J44.9 - Chronic obstructive pulmonary disease, unspecified Status: Acute Assessment and Plan: * Former smoker. * Chest X-ray showed: Severe bullous emphysematous change with postoperative volume loss and apical thickening of the right hemithorax. * Albuterol 2 puffs q6 PRN. (3) CHRISTOPHER (acute kidney injury): Code(s): N17.9 - Acute kidney failure, unspecified Status: Acute Assessment and Plan: * Creatinine 1.50 on admission, improved to 1.31 with IV fluids. * Continue to trend and encourage oral intake. Subjective Date/time seen: 02/18/25 11:31 Interval history: Patient sitting up in bed. Patient denies pain, shortness of breath, headache, dizziness, nausea, or vomiting. Patient reports coughing up clear drainage that is thick at times. Friend at bedside. Review of Systems Review of Systems: All systems reviewed & are unremarkable except as noted in HPI and below Exam Const: General: comfortable and no acute distress Resp: Effort & Inspection: normal respiratory effort Auscultation: diminished lung sounds Cardio: Rate: regular rate Rhythm: regular rhythm Other: Telemetry- SR 76 GI: GI Palp: Yes Soft to palpation Auscultation: normal bowel sounds Skin: Other: 3 gauze dressings with clear dressing ov er the dressings. C/D/I. No redness or swelling. Neuro: Speech: normal speech Extrem: General: no pedal edema Psych: Mental Status: mental status grossly normal Affect: normal affect Objective Data Vital Signs Vital Signs: Vital Signs - 24 hr 02/17/25 12:03 02/17/25 16:01 02/17/25 18:09 Temperature Pulse Rate 90 78 Respiratory Rate Blood Pressure Pulse Oximetry Oxygen Delivery Room Air Oxygen Flow Rate Fraction of Inspired Oxygen 02/17/25 20:00 02/17/25 20:00 02/18/25 00:00 Temperature Pulse Rate 78 84 78 Respiratory Rate 16 Blood Pressure Pulse Oximetry 91 Oxygen Delivery Nasal Cannula Oxygen Flow Rate 2 Fraction of Inspired Oxygen 02/18/25 04:00 02/18/25 06:09 02/18/25 08:10 Temperature 98.4 F Pulse Rate 76 91 Respiratory Rate 18 Blood Pressure 119/53 L Pulse Oximetry 96 96 Oxygen Delivery Nasal Cannula Oxygen Flow Rate 2 Fraction of Inspired Oxygen 28 Intake/Output Intake/Output: Intake & Output 02/15/25 02/16/25 02/17/25 02/18/25 23:59 23:59 23:59 23:59 Intake Total 1350 3683.3 440 Output Total 825 650 325 Balance 525 3033.3 115 Meds/Results Medications: Active Medications Generic Name Dose Route Start Last Admin Trade Name Freq PRN Reason Stop Dose Admin Acetaminophen 650 mg 02/16/25 03:17 Acetaminophen 325 Mg Tablet PO Q4H PRN Fever Acetaminophen 500 mg 02/16/25 09:21 Acetaminophen 500 Mg Tablet PO Q6H PRN Pain Rated 1-3 Hydrocodone Bitart/Acetaminophen 1 tab 02/16/25 09:21 02/18/25 05:10 Hydrocodone/Acetaminophen (*Crx) 5-325 Mg Tablet PO 1 tab Q4H PRN Administration Pain Rated 4-6 Hydrocodone Bitart/Acetaminophen 1 tab 02/16/25 09:21 Hydrocodone/Acetaminophen (*Crx) 10-325 Mg Tablet PO Q4H PRN Pain Rated 7-10 Al Hydrox/Mg Hydrox/Simethicone 30 ml 02/16/25 03:22 Mag Hydrox/Al Hydrox/Simeth 30 Ml Udc PO Q6H PRN Indigestion Albuterol 2 puff 02/16/25 15:32 Albuterol Sulfate (*Sp) Aerosol 1 Puff INHALATION Q6HRT PRN Shortness Of Breath Aspirin 81 mg 02/16/25 21:00 02/18/25 07:59 Aspirin 81 Mg Enteric Tablet PO 81 mg Q12HR SIMRAN Administration Hydromorphone HCl 1 mg 02/16/25 09:15 Hydromorphone Hcl Inj (*Crx) 2 Mg/Ml Vial IV PUSH Q2H PRN Breakthrough Pain Rated 7-10 or NPO Hydromorphone HCl 0.5 mg 02/16/25 09:15 Hydromorphone Hcl Inj (*Crx) 2 Mg/Ml Vial IV PUSH Q2H PRN Breakthrough Pain Rated 4-6 or NPO Hydroxyzine Pamoate 50 mg 02/16/25 09:15 Hydroxyzine Pamoate 25 Mg Capsule PO Q4H PRN Itching Ibuprofen 800 mg in 200 mls @ 400 mls/hr 02/16/25 09:15 02/16/25 16:30 Caldolor 800 Mg/200 Ml IVPB Infused Q6H PRN Infusion Breakthrough Pain Rated 1-3 or NPO Naloxone HCl 0.1 mg 02/16/25 09:15 Naloxone Hcl 0.4 Mg/Ml Vial IV PUSH Q2M PRN Opiate Reversal Ondansetron HCl 4 mg 02/16/25 09:15 Ondansetron Inj 4 Mg/2 Ml Vial IV PUSH Q4H PRN Nausea And Vomiting Polyethylene Glycol 17 gm 02/17/25 09:00 02/18/25 07:59 Polyethylene Glycol 3350 17 Gm Powd.Pack PO 17 gm QAM SIMRAN Administration Sacubitril/Valsartan 1 tablet 02/17/25 09:00 02/18/25 07:59 Sacubitril/Valsartan 49-51 Mg Tablet PO 1 tablet Q12HR SIMRAN Administration Senna/Docusate Sodium 2 tab 02/16/25 17:00 02/18/25 07:59 Senna/Docusate Sodium Tablet PO 2 tab BID SIMRAN Administration Radiology Results: ITS Impressions Intraoperative X-Ray 02/16/25 09:19 IMPRESSION: 1. Fluoroscopy utilized during internal fixation of an intertrochanteric fracture the proximal right femur which is in near-anatomic alignment. Labs Labs: Laboratory Results - last 24 hr 02/18/25 05:38 WBC 5.1 RBC 3.38 L Hgb 11.5 L Hct 36.3 L MCV 107.4 H MCH 34.0 MCHC 31.7 L RDW 15.1 H Plt Count 141 L MPV 10.7 H Immature Gran % (Auto) 0.6 H Neut % (Auto) 74.7 H Lymph % (Auto) 9.2 L [place] % (Auto) 13.5 H Eos % (Auto) 1.8 Baso % (Auto) 0.2 Lymph # (Auto) 0.47 L [place] # (Auto) 0.7 H Eos # (Auto) 0.1 Baso # (Auto) 0.0 Abs Immat Gran (auto) 0.03 Absolute Neuts (auto) 3.8 Absolute Nucleated RBC 0.000 Band Neutrophils % Not Reportable Nucleated RBC % 0.0 Platelet Estimate Slightly decreased Macrocytosis 1+ [place] Cells 1+ Schistocytes None seen Sodium 137 Potassium 4.3 Chloride 107 Carbon Dioxide 24 Anion Gap 6 BUN 19 Creatinine 1.31 H Estim Creat Clear Calc 41 Estimated GFR 53 L Glucose 88 Calcium 8.3 L Magnesium 1.9 Total Bilirubin 0.5 AST 21 ALT 8 Alkaline Phosphatase 79 Total Protein 6.0 L Albumin 2.9 L Quality VTE Prophylaxis VTE prophylaxis: mechanical ordered
[2025-02-18] MEDS: guaiFENesin 12 HR 600 MG TABCR PO ×2 (12:51→20:24)
--- NOTE | 2025-02-18 13:56 | P.CDI_ITS ---
<Statement entered by Kelly Espinosa, RAINA - 02/18/25 15:28> This documentation has been reviewed and approved. Patient just had surgery, do not agree to add at this point. CDI Query Clarification Request BMI: 21.1 Nutritional Diagnostic Statement: Please refer to the comprehensive nutrition assessment for further information. If you agree with diagnosis of Moderate protein calorie malnutrition related to inadequate energy intake as evidenced by pt report of reduced appetite and intake for greater than 1 month with NFPE findings for moderate subcutaneous fat loss (cheeks) and moderate muscle wasting (jehovah's witness, clavicle). Please specify severity if known: * Mild * Moderate * Severe * Other/Unknown
--- NOTE | 2025-02-18 18:32 | PM.PNORT ---
Progress Note: A&P Assessment and Plan (1) Closed right hip fracture: Code(s): S72.001A - Fracture of unspecified part of neck of right femur, initial encounter for closed fracture Status: Acute Plan Discharge planning in progress. Notes indicate possible discharge to rehab facility tomorrow WBAT Follow up with my clinic in 4 weeks. Daily dressing changes (dry) ECASA 81mg bid for 4 weeks for dvt prophylaxis Time Spent With Patient Time with patient: less than 15 minutes Subjective Subjective Date/Time Seen: 02/18/25 18:32 Post Op day: 3 Principal diagnosis: Right Hip IM Niko Exam Narrative: Right Hip bandaged and dry Objective Data Vital Signs Vital Signs: Vital Signs - 24 hr 02/17/25 20:00 02/17/25 20:00 02/18/25 00:00 Temperature Pulse Rate 78 84 78 Respiratory Rate 16 Blood Pressure Pulse Oximetry 91 Oxygen Delivery Nasal Cannula Oxygen Flow Rate 2 Fraction of Inspired Oxygen 02/18/25 04:00 02/18/25 06:09 02/18/25 08:00 Temperature 36.9 C Pulse Rate 76 91 91 Respiratory Rate 18 Blood Pressure 119/53 L Pulse Oximetry 96 94 Oxygen Delivery Nasal Cannula Oxygen Flow Rate 2 Fraction of Inspired Oxygen 02/18/25 08:00 02/18/25 08:10 02/18/25 12:00 Temperature Pulse Rate 97 81 Respiratory Rate Blood Pressure Pulse Oximetry 96 Oxygen Delivery Nasal Cannula Oxygen Flow Rate 2 Fraction of Inspired Oxygen 28 Intake/Output Intake/Output: Intake & Output 02/15/25 02/16/25 02/17/25 02/18/25 23:59 23:59 23:59 23:59 Intake Total 1350 3683.3 1710 Output Total 727 709 8064 Balance 525 3033.3 245 Meds/Results Medications: Active Medications Generic Name Dose Route Start Last Admin Trade Name Freq PRN Reason Stop Dose Admin Acetaminophen 650 mg 02/16/25 03:17 Acetaminophen 325 Mg Tablet PO Q4H PRN Fever Acetaminophen 500 mg 02/16/25 09:21 Acetaminophen 500 Mg Tablet PO Q6H PRN Pain Rated 1-3 Hydrocodone Bitart/Acetaminophen 1 tab 02/16/25 09:21 02/18/25 05:10 Hydrocodone/Acetaminophen (*Crx) 5-325 Mg Tablet PO 1 tab Q4H PRN Administration Pain Rated 4-6 Hydrocodone Bitart/Acetaminophen 1 tab 02/16/25 09:21 Hydrocodone/Acetaminophen (*Crx) 10-325 Mg Tablet PO Q4H PRN Pain Rated 7-10 Al Hydrox/Mg Hydrox/Simethicone 30 ml 02/16/25 03:22 Mag Hydrox/Al Hydrox/Simeth 30 Ml Udc PO Q6H PRN Indigestion Albuterol 2 puff 02/16/25 15:32 Albuterol Sulfate (*Sp) Aerosol 1 Puff INHALATION Q6HRT PRN Shortness Of Breath Aspirin 81 mg 02/16/25 21:00 02/18/25 07:59 Aspirin 81 Mg Enteric Tablet PO 81 mg Q12HR SIMRAN Administration Guaifenesin 600 mg 02/18/25 11:35 02/18/25 12:51 Guaifenesin 12 Hr 600 Mg Tabcr PO 02/25/25 11:34 600 mg Q12HR SIMRAN Administration Hydromorphone HCl 1 mg 02/16/25 09:15 Hydromorphone Hcl Inj (*Crx) 2 Mg/Ml Vial IV PUSH Q2H PRN Breakthrough Pain Rated 7-10 or NPO Hydromorphone HCl 0.5 mg 02/16/25 09:15 Hydromorphone Hcl Inj (*Crx) 2 Mg/Ml Vial IV PUSH Q2H PRN Breakthrough Pain Rated 4-6 or NPO Hydroxyzine Pamoate 50 mg 02/16/25 09:15 Hydroxyzine Pamoate 25 Mg Capsule PO Q4H PRN Itching Ibuprofen 800 mg in 200 mls @ 400 mls/hr 02/16/25 09:15 02/16/25 16:30 Caldolor 800 Mg/200 Ml IVPB Infused Q6H PRN Infusion Breakthrough Pain Rated 1-3 or NPO Naloxone HCl 0.1 mg 02/16/25 09:15 Naloxone Hcl 0.4 Mg/Ml Vial IV PUSH Q2M PRN Opiate Reversal Ondansetron HCl 4 mg 02/16/25 09:15 Ondansetron Inj 4 Mg/2 Ml Vial IV PUSH Q4H PRN Nausea And Vomiting Polyethylene Glycol 17 gm 02/17/25 09:00 02/18/25 07:59 Polyethylene Glycol 3350 17 Gm Powd.Pack PO 17 gm QAM SIMRAN Administration Sacubitril/Valsartan 1 tablet 02/17/25 09:00 02/18/25 07:59 Sacubitril/Valsartan 49-51 Mg Tablet PO 1 tablet Q12HR SIMRAN Administration Senna/Docusate Sodium 2 tab 02/16/25 17:00 02/18/25 17:22 Senna/Docusate Sodium Tablet PO 2 tab BID SIMRAN Administration Radiology Results: ITS Impressions Intraoperative X-Ray 02/16/25 09:19 IMPRESSION: 1. Fluoroscopy utilized during internal fixation of an intertrochanteric fracture the proximal right femur which is in near-anatomic alignment. Labs Labs: Laboratory Results - last 24 hr 02/18/25 05:38 WBC 5.1 RBC 3.38 L Hgb 11.5 L Hct 36.3 L MCV 107.4 H MCH 34.0 MCHC 31.7 L RDW 15.1 H Plt Count 141 L MPV 10.7 H Immature Gran % (Auto) 0.6 H Neut % (Auto) 74.7 H Lymph % (Auto) 9.2 L [place] % (Auto) 13.5 H Eos % (Auto) 1.8 Baso % (Auto) 0.2 Lymph # (Auto) 0.47 L [place] # (Auto) 0.7 H Eos # (Auto) 0.1 Baso # (Auto) 0.0 Abs Immat Gran (auto) 0.03 Absolute Neuts (auto) 3.8 Absolute Nucleated RBC 0.000 Band Neutrophils % Not Reportable Nucleated RBC % 0.0 Platelet Estimate Slightly decreased Macrocytosis 1+ Gurpreet Cells 1+ Schistocytes None seen Sodium 137 Potassium 4.3 Chloride 107 Carbon Dioxide 24 Anion Gap 6 BUN 19 Creatinine 1.31 H Estim Creat Clear Calc 41 Estimated GFR 53 L Glucose 88 Calcium 8.3 L Magnesium 1.9 Total Bilirubin 0.5 AST 21 ALT 8 Alkaline Phosphatase 79 Total Protein 6.0 L Albumin 2.9 L
[2025-02-18] MEDS: HYDROcodone/acetaminophen (*CRX) 10-325 MG TABLET 1 TAB PO (21:51)
[2025-02-19 00:02] VITALS: PULSE 86
[2025-02-19 04:00] VITALS: PULSE 77
[2025-02-19 05:05] VITALS: BP 131/74; PULSE 98; RESP 20; TEMP 36.1; O2SAT 91
[2025-02-19 05:54] LABS: Basophils Absolute Auto 0.1 K/mm3 (0.0-0.1); Basophils Percent Auto 0.8 % (0.2-1.2); Eosinophils Absolute Auto 0.1 K/mm3 (0-0.3); Eosinophils Percent Auto 2.2 % (0-4.4); Hematocrit 36.6 % (42.0-52.0); Hemoglobin 11.9 g/dL (14.0-18.0); Immature Granulocyte Absolute 0.03 K/mm3 (0.00-0.031); Immature Granulocyte Percent A 0.5 % (0-0.5); Lymphocytes Absolute Auto 0.57 K/mm3 (0.9-3.2); Lymphocytes Percent Auto 8.9 % (18.3-44.2); Mean Corpuscular HGB Conc 32.5 g/dl (32-36); Mean Corpuscular Hemoglobin 34.1 pg (26-34); Mean Corpuscular Volume 104.9 fl (80-100); Mean Platelet Volume 10.7 fl (7.4-10.4); Monocytes Absolute Auto 0.8 K/mm3 (0.1-0.6); Monocytes Percent Auto 11.8 % (2.6-8.5); Neutrophils Absolute Auto 4.8 K/mm3 (1.3-6.7); Neutrophils Percent Auto 75.8 % (45.5-73.1); Platelet Count Result 168 k/mm3 (150-375); Red Blood Count 3.49 M/mm3 (4.6-6.20); Red Cell Distribution Width 14.8 % (11.5-14.5); White Blood Count 6.4 K/mm3 (4.5-10.0)
[2025-02-19 06:14] LABS: Alanine Aminotransferase 9 U/L (6-50); Albumin Level 3.1 g/dL (3.5-5.1); Alkaline Phosphatase 81 U/L (38-126); Anion Gap 6 mmol/L (4-12); Aspartate Amino Transferase 21 U/L (17-59); Bilirubin,Total 0.7 mg/dL (0.2-1.3); Blood Urea Nitrogen 19 mg/dL (9-20); Calcium 8.6 mg/dL (8.4-10.2); Carbon Dioxide 26 mmol/L (22-30); Chloride 105 mmol/L (98-107); Estimated CRCL calculation 46 ml/min; Estimated Glomerular Filt Rate > 60; Glucose 89 mg/dL (65-110); Magnesium 1.9 mg/dL (1.6-2.3); Potassium 3.9 mmol/L (3.4-5.0); Sodium 137 mmol/L (137-145)
[2025-02-19 08:01] VITALS: PULSE 93
[2025-02-19] MEDS: ASPIRIN 81 MG ENTERIC TABLET PO (08:57)
[2025-02-19] MEDS: guaiFENesin 12 HR 600 MG TABCR PO (08:57)
[2025-02-19] MEDS: polyethylene glycoL 3350 17 GM POWD.PACK PO (08:57)
[2025-02-19] MEDS: SENNA/DOCUSATE SODIUM TABLET 2 TAB PO (08:57)
[2025-02-19] MEDS: SACUBITRIL/VALSARTAN 49-51 MG TABLET 1 TABLET PO (08:57)
--- NOTE | 2025-02-19 11:01 | P.DS_ITS ---
DS: Admitting Diagnosis Discharge Date 02/19/25 Admitting Diagnosis Right hip pain. DS: Discharge Diagnosis Discharge Diagnosis (1) Closed right hip fracture: Code(s): S72.001A - Fracture of unspecified part of neck of right femur, initial encounter for closed fracture Status: Acute (2) COPD (chronic obstructive pulmonary disease): Code(s): J44.9 - Chronic obstructive pulmonary disease, unspecified Status: Acute (3) CHRISTOPHER (acute kidney injury): Code(s): N17.9 - Acute kidney failure, unspecified Status: Acute DS: Summary Hospital Course Hospital Course: Patient is a 79 year old male that came to hospital from [place] after falling at a rest stop in [place] and driving himself to [place] fire department to get help. Patient transferred here from [place] ER. Patient underwent right hip intra-medullary nail fixation this morning. Patient reports back pain that is a 4 , frequent, and aching. Patient denies chest pain, palpitations, headache, dizziness, nausea, or vomiting. Patient reports that he quit smoking in 2018, he smoked a pack a day for 30 years. Patient uses an Albuterol inhaler PRN. Right Hip X-ray showed: FINDINGS: BONES: Fracture in the right hip intertrochanteric area. HIP JOINT SPACES: Moderate osteoarthritis bilaterally. SACROILIAC JOINT SPACES/LUMBAR SPINE: The sacroiliac joint spaces are normal. Mild degenerative changes of the visualized lower lumbar spine. PUBIC SYMPHYSIS: Pubic symphysitis. SOFT TISSUES: Normal. IMPRESSION: Right intertrochanteric area. Bilateral severe hip osteoarthritic changes Chest X-ray showed: Severe bullous emphysematous change with postoperative volume loss and apical thickening of the right hemithorax. Right hip Intra-medullary nail fixation done on 02/16/25. PT/OT. Completed Cefazolin 2 gram IVPB x 4 doses. Creatinine improved to 1.31.Discharged to rehab. Status at Discharge Functional status at discharge: uses cane/walker Overall status at discharge: patient is not back to baseline Time Spent with Patient Time attestation: Total time spent providing and/or coordinating discharge services: Time spent: Greater than 30 minutes Exam Const: General: no acute distress and uncomfortable Resp: Effort & Inspection: normal respiratory effort Auscultation: diminished lung sounds Cardio: Rate: regular rate Rhythm: regular rhythm Other: Telemetry-SR 98 GI: GI Palp: Yes Soft to palpation Auscultation: normal bowel sounds Skin: Other: 3 gauze dressings with clear dressing ov er the dressings. C/D/I. No redness or swelling. Extrem: General: no pedal edema Psych: Mental Status: mental status grossly normal Affect: normal affect DS: Data Data Completed and Pending Labs on day of discharge: Labs from last 24 hours 02/19/25 05:38 WBC 6.4 RBC 3.49 L Hgb 11.9 L Hct 36.6 L MCV 104.9 H MCH 34.1 H MCHC 32.5 RDW 14.8 H Plt Count 168 MPV 10.7 H Immature Gran % (Auto) 0.5 Neut % (Auto) 75.8 H Lymph % (Auto) 8.9 L [place] % (Auto) 11.8 H Eos % (Auto) 2.2 Baso % (Auto) 0.8 Lymph # (Auto) 0.57 L [place] # (Auto) 0.8 H Eos # (Auto) 0.1 Baso # (Auto) 0.1 Abs Immat Gran (auto) 0.03 Absolute Neuts (auto) 4.8 Absolute Nucleated RBC 0.000 Nucleated RBC % 0.0 Sodium 137 Potassium 3.9 Chloride 105 Carbon Dioxide 26 Anion Gap 6 BUN 19 Creatinine 1.16 Estim Creat Clear Calc 46 Estimated GFR > 60 Glucose 89 Calcium 8.6 Magnesium 1.9 Total Bilirubin 0.7 AST 21 ALT 9 Alkaline Phosphatase 81 Total Protein 6.0 L Albumin 3.1 L Discharge Plan Discharge Attending physician on discharge: Tammie Lorenzo Consulting providers: Kofi Landin Discharging Clinician: Kelly Espinosa Anticipated Discharge Date/Time: 02/19/25 11:30 Patient Disposition: SNF Activity: follow weight bearing status Diet: heart healthy Discharge Instructions: * WBAT * Follow up with Dr. Land[facility] in 4 weeks. * Daily dressing changes (dry) * ECASA 81mg bid for 4 weeks for dvt prophylaxis. Thank you for entrusting [facility] with your healthcare! Patient Instructions: How to Use an Incentive Spirometer (DC), Opioid Safety (DC), ORIF of Hip Fracture (DC) Patient Language: B[place] Stand Alone Forms: General Discharge Information Follow-up/Referrals: Kofi Landin MD [Physician] - 4 Weeks Lokesh,MD Andrey [Primary Care Provider] - 2 Weeks Discharge Medications: New acetaminophen 500 mg Tablet 500 mg PO Q6H PRN (Reason: Pain Rated 1-3) Qty: 30 0RF guaifenesin [Mucus Relief ER] 600 mg Tablet Extended Release 12hr 600 mg PO Q12HR Qty: 14 0RF albuterol sulfate [Ventolin HFA] 90 mcg/actuation HFA aerosol inhaler 2 puff inhalation QID PRN (Reason: shortness of breath or wheezing) Qty: 8.5 0RF hydrocodone-acetaminophen 5-325 mg Tablet 1 tablet PO Q4H PRN (Reason: Pain Rated 4-6) Qty: 10 0RF Continued Entresto 49-51 mg tablet 1 tablet PO Q12H aspirin [Adult Low Dose Aspirin] 81 mg tablet,delayed release (DR/EC) 81 mg PO DAILY Date of admission: 02/16/25 02:17 Primary Care Provider: Lokesh,Andrey Admitting Provider: Lory Branch Attending physician on admission: Lory Branch Condition: Improved Hospitalist MIPS Heart Failure (Exclusion) Patient has history of Heart Transplant or Left Ventricular Assistive Device?: No IF YES, STOP HERE Heart Failure (Qualifier) Patient has current or prior documentation of LVEF less than or equal to 40%, or mod/servere depressed LVSF?: No IF NO, STOP HERE
[2025-02-19 12:04] VITALS: PULSE 109
[2025-02-19 12:38] LABS: SARS-CoV-2 RNA PCR Negative (Negative)
== END 2025-02-19 13:45 | DRG 481 ==
PROVIDERS: Orthopaedic Surgery; Admitting Provider Internal Medicine; PCP Family Medicine; Visit Provider Nurse Practitioner Family
PROC: 0QS636Z Reposition Right Upper Femur with Intramedullary Internal Fixation Device, Percutaneous Approach (ICD-10-PCS; CPT 27245; principal; 2025-02-16 07:45)
DX: S72.144A Nondisplaced intertrochanteric fracture of right femur, initial encounter for closed fracture (principal); N17.9 Acute kidney failure, unspecified; W19.XXXA Unspecified fall, initial encounter; J44.9 Chronic obstructive pulmonary disease, unspecified; N40.0 Benign prostatic hyperplasia without lower urinary tract symptoms; Z66 Do not resuscitate; Z11.52 Encounter for screening for COVID-19; Z85.118 Personal history of other malignant neoplasm of bronchus and lung; Z87.891 Personal history of nicotine dependence; Z79.82 Long term (current) use of aspirin
CPT/HCPCS: 36415; 80048; 80053; 83735; 85025; 87635; 93005; 97110; 97116; 97161; 97165; 97530; 97535; 99199; A9270; C1713; C1769; J0690; J1741; J2004; J2270; J2405; J2704; J3010; J7030; J7120